=== PATIENT | male | born 1990 | race Caucasian/White ===

== ENCOUNTER 2016-12-16 04:35 | Emergency (ER) | payer SELFPAY ==
[~2016-12-16] VITALS: Ht 175.3 cm; Wt 133.6 kg
[~2016-12-16 04:35] MED LIST: FLUOXETINE; RISPERIDONE; TRAZODONE
--- OUTSIDE RECORDS SUMMARY | 2016-12-16 04:39 | XMS REPORT | Continuity of care Document ---
Author Author GENERATED, SYSTEM Organization Unknown Address Unknown Phone Unavailable Purpose Hospital Course Allergies, Adverse Reactions, Alerts * Latex Allergy has not been assessed. * IV Contrast Allergy has not been assessed. * No Known Drug Allergies. Problems No relevant problems exist. Procedures No relevant procedures performed. Medication Medication reconciliation has not been performed. Results Chemistry from 01/31/2014 12:10 PMANION GAP 8.6 MMOL/L (8.0-16.0 MMOL/L) A/G RATIO 0.9 MG/DL L (1.5-2.2 MG/DL) ALBUMIN 3.6 GM/DL (3.4-5.0 GM/DL) ALK PHOS 141 U/L H (46-116 U/L) ALT (SGPT) 38 U/L (12-78 U/L) AST (SGOT) 16 U/L (15-37 U/L) BUN/CREATININE RATIO 17.5 H (9.1-17.0 ) BILIRUBIN TOTAL 0.42 MG/DL (0.20-1.00 MG/DL) BUN 10 MG/DL (7-18 MG/DL) CALCIUM 8.7 MG/DL (8.5-10.1 MG/DL) CHLORIDE 103 MMOL/L (98-107 MMOL/L) CREATININE 0.57 MG/DL L (0.63-1.13 MG/DL) GFRA EST AFR AMER >=90 ML/MIN GFR EST NON AFR [place] >=90 ML/MIN GLOBULIN 4.0 GM/DL H (2.3-3.5 GM/DL) GLUCOSE 88 MG/DL (65-99 MG/DL) POTASSIUM 3.7 MMOL/L (3.5-5.1 MMOL/L) SODIUM 137 MMOL/L (136-145 MMOL/L) TCO2 25.4 MMOL/L (21.0-32.0 MMOL/L) TOTAL PROTEIN 7.6 GM/DL (6.4-8.2 GM/DL) ALCOHOL <0.003 GM/DL ACETAMINOPHEN <2 MCG/ML L (10-30 MCG/ML) SALICYLATE 2.3 MG/DL L (2.8-20.0 MG/DL) Coagulation from 01/31/2014 12:10 PMPARTIAL THROMBOPLASTIN TIME 21.9 SECONDS L ( 22.0-28.0 SECONDS) INR 0.9 PROTHROMBIN TIME 10.0 SECONDS (9.4-11.5 SECONDS) DX Radiology from 01/31/2014 12:02 PMACUTE ABDOMEN SERIES DATE OF EXAM: Jan 31 2014 12:20PM Proc: [facility] 4256 - ACUTE ABDOMEN SERIES CPT Code(s): 86411-; ; ; INDICATION / CLINICAL HISTORY: Rectal bleeding. COMPARISON: None. FINDINGS: Cardiac silhouette and pulmonary vasculature are within normal limits. There are no focal infiltrates or effusions. There is no free intraperitoneal air. The abdominal bowel gas pattern is unremarkable. There are no suspicious calcifications. IMPRESSION: No acute cardiopulmonary disease or acute abdominal processes. Hematology from 01/31/2014 12:10 PMHEMATOCRIT 43.1 % (36.7-47.1 %) HEMOGLOBIN 14.8 G/DL (12.5-16.3 G/DL) MCH 30.5 PG (27.0-33.0 PG) MCHC 34.3 G/DL (32.0-36.0 G/DL) MCV 88.8 FL (80.0-100.0 FL) MPV 7.9 FL (7.4-10.4 FL) PLATELET 223 X10e3/UL (159-386 X10e3/UL) RBC 4.85 X10e6/UL (4.06-5.63 X10e6/UL) RDW 13.1 % (12.3-17.0 %) RDWSD 40.3 (37.1-47.8 ) WBC 9.4 X10e3/UL (3.6-11.2 X10e3/UL) ABSOLUTE BASOPHILS 0.1 X10e3/UL (0.0-0.2 X10e3/UL) AUTOMATED DIFF PERFORMED ABSOLUTE EOSINOPHILS 0.1 X10e3/UL (0.0-0.5 X10e3/UL) ABSOLUTE LYMPHOCYTES 2.5 X10e3/UL (1.0-3.0 X10e3/UL) ABSOLUTE MONOCYTES 0.8 X10e3/UL (0.3-1.0 X10e3/UL) ABSOLUTE NEUTROPHILS 6.0 X10e3/UL (1.8-7.8 X10e3/UL) BASOPHILS 0.6 % EOSINOPHILS 0.5 % LYMPHOCYTES 26.2 % MONOCYTES 8.5 % SEGS 64.2 %
--- OUTSIDE RECORDS SUMMARY | 2016-12-16 04:39 | XMS REPORT | Continuity of Care Document ---
Author Author [facility] Organization [facility] Address Unknown Phone Unavailable Support Name Relationship Address Phone JANUARY, JOJO M DO Caregiver [address] [place] [address] Unavailable AMBER CARBAJAL Next Of Kin Unknown [phone] Insurance Providers Guarantor Neeraj Ferguson Address [address] [place] [address] Email DENIED 16 Payer Self Pay Subscriber's Name Neeraj Ferguson Relationship 18 Self Chief Complaint and Reason for Visit Chief Complaint Cough,Fever,Flu,URI Reason for Visit URI (upper respiratory infection) Problems Past Problems Medical Problem Onset Date URI (upper respiratory infection) Unknown Medications Current Home Medications Medication Dose Units Route Directions Days Qty Instructions Start Date Fluoxetine 11/04/16 Risperidone 11/04/16 Trazodone 11/04/16 Social History Social History Problem Response Recorded Date/Time Onset Date Status Chewing Tobacco Status No 11/04/2016 3:43am Not Applicable Not Applicable Hx Substance Use N CLEAN FOR 100DAYS 11/04/2016 3:43am Not Applicable Not Applicable Hx Alcohol Use No 11/04/2016 3:43am Not Applicable Not Applicable Query Response Start Date Stop Date Smoking Status Current every day smoker Hospital Discharge Instructions No hospital discharge instructions. Plan of Care Discharge Date 11/04/16 4:08am Disposition 01 DISCHARGED HOME, SELF-CARE Condition at Discharge Stable Instructions/Education Provided Upper Respiratory Infection (ED) Prescriptions See Medication Section Referrals YOUR PHYSICIAN Order Date: 1 Week Note: Additional Instructions/Education You have a viral upper respiratory infection (a cold). Use nyquil and dayquil to help control your symptoms. You may use throat lozenges or tea with honey and lemon for sore throat, if one develops. Drink plenty of fluids and get plenty of rest. Follow up with your doctor, especially if your symptoms last more than 14 days total. Care Plan and Goals Physician Care Plan Problem: URI Goal: Follow up with primary care provider Instructions: Take medications and follow care plan as discussed/written Functional Status No functional status results. Allergies, Adverse Reactions, Alerts No known allergies. Immunizations No immunization records. Vital Signs Acute Vital Signs Vital Response Date/Time Temperature (Fahrenheit) 97.6 deg F (96.8 - 99.1) 11/04/2016 4:08am Temperature (Calculated Celsius) 36.10115 degrees C (36.0 - 37.3) 11/04/2016 4:08am Pulse Rate (adult) 70 bpm (60 - 100) 11/04/2016 4:08am Respiratory Rate 18 breaths/min (10 - 20) 11/04/2016 4:08am O2 Sat by Pulse Oximetry 97 % (90 - 100) 11/04/2016 4:08am Blood Pressure 145/86 mm Hg 11/04/2016 4:08am Height (Feet) 5 feet 11/04/2016 3:37am Height (Inches) 9.00 inches 11/04/2016 3:37am Weight (Kilograms) 135.600 kg 11/04/2016 3:37am Body Mass Index (BMI) 44.0 11/04/2016 3:37am Results No known relevant diagnostic tests, laboratory data and/or discharge summary. Procedures No known history of procedures. Encounters Encounter Location Arrival/Admit Date Discharge/Depart Date Attending Provider Departed Emergency Room [facility] 11/04/16 3:30am 11/04/16 4: 08am JOJO VIDAL DO Recent Diagnosis
--- OUTSIDE RECORDS SUMMARY | 2016-12-16 04:39 | XMS REPORT ---
Author Author GENERATED, SYSTEM Organization Unknown Address Unknown Phone Unavailable Care Team Providers Care Referral Agent Name Role Phone MD HANNA, [facility] [phone] Reason For Visit Chief Complaint COUGH X 1 WEEK Social History Functional Status Vital Signs Results Problems Encounter Diagnosis No relevant problems exist. Encounters Encounter Diagnosis No relevant problems exist. Plan of Care Procedures * Completed Procedure Code: 00.00 Procedure Name: not valued, on 12/26/2014 12: 00 AM * Completed , on 03/12/2013 12:00 AM * Completed , on 11/18/2012 12:00 AM Immunizations No immunizations administered or ordered. Hospital Course Hospital Discharge Instructions Allergies, Adverse Reactions, Alerts * Latex Allergy has not been assessed. * IV Contrast Allergy has not been assessed. * No Known Drug Allergies. * No Known Food Allergies. * No Known Allergies. Medication Medication reconciliation has not been performed.
--- OUTSIDE RECORDS SUMMARY | 2016-12-16 04:39 | XMS REPORT ---
Author Author GENERATED, SYSTEM Organization Unknown Address Unknown Phone Unavailable Care Team Providers Care Drupal Developer Name Role Phone MD HANNA, [facility] [phone] Reason For Visit Chief Complaint STAPH INFECTION Social History Functional Status Vital Signs Results Problems Encounter Diagnosis No relevant problems exist. Encounters Encounter Diagnosis No relevant problems exist. Plan of Care Procedures * Completed , on 03/12/2013 12:00 AM [...]
--- OUTSIDE RECORDS SUMMARY | 2016-12-16 04:39 | XMS REPORT ---
Author Author GENERATED, SYSTEM Organization Unknown Address Unknown Phone Unavailable Care Team Providers Care [employer] 7 [employer] 8 Teacher Name Role Phone MD HANNA, [facility] [phone] Reason For Visit Chief Complaint STAPH INFECTION IN HAND COUGH Social History Functional Status Vital Signs Results [...] been assessed. * No Known Drug Allergies. Medication Medication reconciliation has not been performed.
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
--- OUTSIDE RECORDS SUMMARY | 2016-12-16 04:40 | XMS REPORT ---
Author Author GENERATED, SYSTEM Organization Unknown Address Unknown Phone Unavailable Care Team Providers Care Plaster Machine Tender Name Role Phone UNASSIGNED DOCTOR , DOCTOR PP [phone] Reason For Visit Reason for Visit from 02/09/2016 11:35 AM:* Pt Stated Reason for Adm : Pt from [facility], unable to safety plan, "severe" SI, Reason for Visit from 02/07/2016 3:41 PM:* Pt Stated Reason for Adm : Pt from [facility], unable to safety plan, "severe" SI, Chief Complaint UNSPECIFIED DEPRESSION Social History Social History from 02/10/2016 10:59 AM:* Tobacco Use? : Current Everyday Smoker Social History from 02/09/2016 11:35 AM:* Tobacco Use? : Current Everyday Smoker Social History from 02/07/2016 3:41 PM:* Tobacco Use? : Current Everyday Smoker Functional Status Functional Status from 02/10/2016 11:17 AM:* LOC : Alert * Oriented To : Person,Place,Time,Event * Weight Bearing Status : Full * Assist Level : Independent * # Assists : Independent Functional Status from 02/09/2016 7:20 PM:* LOC : Alert * Oriented To : Person,Place,Time,Event * Weight Bearing Status : Full * Assist Level : Independent * # Assists : Independent Functional Status from 02/09/2016 9:08 AM:* LOC : Alert * Oriented To : Person,Place,Time,Event * Weight Bearing Status : Full * Assist Level : Independent * # Assists : Independent Functional Status from 02/08/2016 8:38 PM:* LOC : Alert * Oriented To : Person,Place,Time,Event * Weight Bearing Status : Full * Assist Level : Independent * # Assists : Independent Functional Status from 02/08/2016 10:41 AM:* LOC : Alert * Oriented To : Person,Place,Time,Event * Weight Bearing Status : Full * Assist Level : Independent * # Assists : Independent Functional Status from 02/07/2016 7:30 PM:* LOC : Alert * Oriented To : Person,Place,Time,Event * Weight Bearing Status : Full * Assist Level : Independent * # Assists : Independent Functional Status from 02/07/2016 3:41 PM:* LOC : Alert * Oriented To : Person,Place,Time,Event * Weight Bearing Status : Full * Assist Level : Independent * # Assists : Independent Vital Signs Hospital Vital Signs from 02/10/2016 6:17 AM:* Height : 5/9 ft,in * Temperature : 97.5 F * Pulse : 66 * Respirations : 20 * BP : 109/68 Hospital Vital Signs from 02/09/2016 6:32 AM:* Weight : 129.6/ kg * Height : 5/9 ft,in * Temperature : 97.3 F * Pulse : 70 * Respirations : 18 * BP : 139/82 Hospital Vital Signs from 02/08/2016 9:05 PM:* Height : 5/9 ft,in * Temperature : 97.4 F * Pulse : 97 * Respirations : 20 * BP : 153/108 Hospital Vital Signs from 02/08/2016 10:29 AM:* Height : 5/9 ft,in Hospital Vital Signs from 02/08/2016 5:46 AM:* Height : 5/9 ft,in * Temperature : 96.9 F * Pulse : 85 * Respirations : 20 * BP : 140/96 Hospital Vital Signs from 02/07/2016 3:41 PM:* Weight : 128.7/ kg * Height : 5/9 ft,in Hospital Vital Signs from 02/07/2016 2:50 PM:* Weight : 128.7/ kg * Height : 5/9 ft,in * Temperature : 97.2 F * Pulse : 97 * Respirations : 16 * BP : 159/103 Results Chemistry from 02/08/2016 4:30 AMGLUCOSE (FASTING) 107 MG/DL H (65-99 MG/DL) Chemistry from 02/07/2016 4:20 PMSODIUM 142 MMOL/L (136-145 MMOL/L) POTASSIUM 4.5 MMOL/L (3.5-5.1 MMOL/L) CHLORIDE 103 MMOL/L (98-107 MMOL/L) TCO2 31.6 MMOL/L (21.0-32.0 MMOL/L) *ANION GAP 7.4 MMOL/L L (8.0-16.0 MMOL/L) BUN 9 MG/DL (7-18 MG/DL) CREATININE 0.68 MG/DL L (0.70-1.30 MG/DL) *BUN/CREATININE RATIO 13.2 (9.1-17.0 ) GLUCOSE 94 MG/DL (65-99 MG/DL) *GFR EST NON AFR [place] >90 ML/MIN *GFRA EST AFR AMER >90 ML/MIN CALCIUM 9.0 MG/DL (8.5-10.1 MG/DL) BILIRUBIN TOTAL 0.30 MG/DL (0.20-1.00 MG/DL) TOTAL PROTEIN 7.9 GM/DL (6.4-8.2 GM/DL) ALBUMIN 3.6 GM/DL (3.4-5.0 GM/DL) *GLOBULIN 4.3 GM/DL H (2.3-3.5 GM/DL) *A/G RATIO 0.8 MG/DL L (1.5-2.2 MG/DL) ALK PHOS 153 U/L H (46-116 U/L) ALT (SGPT) 41 U/L (14-59 U/L) AST (SGOT) 19 U/L (15-37 U/L) ALCOHOL <0.003 GM/DL Chemistry from 02/07/2016 3:39 PM*COCAINE NEGATIVE (NEG <150 ) *PCP NEGATIVE (NEG <25 ) *OXYCODONE NEGATIVE (NEG <100 ) *PROPOXYPHENE (NORPROPOXYPHENE) NEGATIVE (NEG <300 ) *CANNABINOIDS NEGATIVE (NEG <50 ) *BENZODIAZEINE NEGATIVE (NEG <150 ) *AMPHETAMINE POSITIVE A (NEG <500 ) *BARBITURATES NEGATIVE (NEG <200 ) *METHAMPHETAMINES POSITIVE A (NEG <500 ) *METHADONE (UR) NEGATIVE (NEG <200 ) *OPIATES NEGATIVE (NEG <100 ) *TRICYCLICS NEGATIVE (NEG <300 ) Hematology from 02/07/2016 4:20 PMWBC 8.1 X10e3/UL (3.6-11.2 X10e3/UL) RBC 5.26 X10e6/UL (4.06-5.63 X10e6/UL) HEMOGLOBIN 15.6 G/DL (12.5-16.3 G/DL) HEMATOCRIT 46.7 % (36.7-47.1 %) *MCV 88.8 FL (80.0-100.0 FL) *MCH 29.7 PG (27.0-33.0 PG) *MCHC 33.5 G/DL (32.0-36.0 G/DL) *RDW 13.8 % (12.3-17.0 %) *RDWSD 42.9 (37.1-47.8 ) PLATELET 242 X10e3/UL (159-386 X10e3/UL) *MPV 7.9 FL (7.4-10.4 FL) Urinalysis from 02/07/2016 3:39 PM*URINE COLOR YELLOW (STRAW/YELL/DK YELL ) *URINE APPEARANCE CLEAR (CLEAR ) URINE PH 6.0 (5.0-8.0 ) URINE SPECIFIC GRAVITY 1.015 (<=1.005->=1.030 ) *URINE GLUCOSE NEGATIVE MG/DL (NEGATIVE MG/DL) *URINE BILIRUBIN NEGATIVE (NEGATIVE ) *URINE KETONES NEGATIVE MG/DL (NEGATIVE MG/DL) *URINE BLOOD NEGATIVE (NEGATIVE ) *URINE PROTEIN NEGATIVE MG/DL (NEGATIVE MG/DL) *URINE UROBILINOGEN 0.2 EU/DL (0.2-1.0 EU/DL) *URINE NITRITES NEGATIVE (NEGATIVE ) *URINE LEUKOCYTES NEGATIVE (NEGATIVE ) Serology from 02/08/2016 11:40 AMHIV 1/2 RAPID SCREEN NON-REACTIVE (NON- REACTIVE ) Reference Lab from 02/08/2016 11:40 AMHEP A AB IGM Negative (Negative ) HEP B SURFACE AG Negative (Negative ) HEP B CORE AB IGM Negative (Negative ) *HCV AB <0.1 s/co ratio (0.0-0.9 s/co ratio) Problems Encounter Diagnosis No relevant problems exist. Encounters Encounter Diagnosis No relevant problems exist. Plan of Care Follow-up Appointments from 02/10/2016 10:59 AM:* #1 Office appointment: : [facility] Intake * #1 Date/Time : 02/10/2016 1:00 PM * Address # 1 : [facility]: [address], [address], [place] - Procedures * Completed Procedure Code: 00.00 Procedure Name: not valued, on 12/26/2014 12: 00 AM * Completed , on 03/12/2013 12:00 AM * Completed , on 11/18/2012 12:00 AM Immunizations No immunizations administered or ordered. Hospital Course Hospital Discharge Instructions How to care for yourself at home from 02/10/2016 10:59 AM:* Discharge Activity : Activity as tolerated,May Shower * Discharge Diet : As before hospitalization,Diet as tolerated * Call your doctor if: : Fever over 101 F or severe chills,Chest pain or other unexplained symptoms,Tingling or numbness develops,A sudden increase or decrease in weight,You have persistent or worsening symptoms,If you have Heart Failure and you gain 3 pounds within 1 week or your symptoms worsen. (Weigh at home tomorrow morning) Allergies, Adverse Reactions, Alerts * No Latex Allergy. * No IV Contrast Allergy. * No Known Drug Allergies. * No Known Food Allergies. * No Known Allergies. Medication It is the responsibility of the patient or patient home office representative to confirm the list of medications with either the patient's personal care provider or the patient's follow-up care provider to ensure the patient has an appropriate list of medications to take at home. Discharge medications New medications* busPIRone 15 mg Tablet, Ordered By: JUANA PETERSON, PAC Directions: 0.5 tablet oral twice a day for anxiety * FLUoxetine (PROzac) 20 mg Capsule, Ordered By: JUANA PETERSON, PAC Directions: 1 capsule oral daily for depression * traZODone 50 mg Tablet, Ordered By: JUANA PETERSON, PAC Directions: 1 tablet oral daily at bedtime for insomnia * nicotine (polacrilex) (Nicorelief) 2 mg Gum, Ordered By: JUANA PETERSON, PAC Directions: 1 gum oral daily for SMOKING CESSATION Additional Instructions: DO NOT GIVE IF PATIENT UNDER AGE 18 OR . Stopped medications* None
--- OUTSIDE RECORDS SUMMARY | 2016-12-16 04:40 | XMS REPORT ---
Author Author GENERATED, SYSTEM Organization Unknown Address Unknown Phone Unavailable Care Team Providers Care Solar Project Coordination Specialist Name Role Phone MD HANNA, [facility] [phone] Reason For Visit Chief Complaint RETURN FOR TEFLARO CHECK Social History Functional Status Vital Signs Results [...]
--- OUTSIDE RECORDS SUMMARY | 2016-12-16 04:40 | XMS REPORT ---
Author Author GENERATED, SYSTEM Organization Unknown Address Unknown Phone Unavailable Care Team Providers Care Stair Builder Name Role Phone MD HANNA, [facility] [phone] Reason For Visit Chief Complaint CRISIS Social History Functional Status Vital Signs Results Chemistry from 01/22/2015 4:07 AMSODIUM 139 MMOL/L (136-145 MMOL/L) POTASSIUM 3.3 MMOL/L L (3.5-5.1 MMOL/L) CHLORIDE 103 MMOL/L (98-107 MMOL/L) TCO2 24.8 MMOL/L (21.0-32.0 MMOL/L) ANION GAP 11.2 MMOL/L (8.0-16.0 MMOL/L) BUN 19 MG/DL H (7-18 MG/DL) CREATININE 0.73 MG/DL (0.63-1.13 MG/DL) BUN/CREATININE RATIO 26.0 H (9.1-17.0 ) GLUCOSE 107 MG/DL H (65-99 MG/DL) GFR EST NON AFR [place] >90 ML/MIN GFRA EST AFR AMER >90 ML/MIN CALCIUM 8.9 MG/DL (8.5-10.1 MG/DL) BILIRUBIN TOTAL 0.36 MG/DL (0.20-1.00 MG/DL) TOTAL PROTEIN 7.6 GM/DL (6.4-8.2 GM/DL) ALBUMIN 3.6 GM/DL (3.4-5.0 GM/DL) GLOBULIN 4.0 GM/DL H (2.3-3.5 GM/DL) A/G RATIO 0.9 MG/DL L (1.5-2.2 MG/DL) ALK PHOS 122 U/L H (46-116 U/L) ALT (SGPT) 48 U/L (14-59 U/L) AST (SGOT) 37 U/L (15-37 U/L) ALCOHOL <0.003 GM/DL ACETAMINOPHEN <2 MCG/ML L (10-30 MCG/ML) SALICYLATE 2.5 MG/DL L (2.8-20.0 MG/DL) Chemistry from 01/22/2015 3:50 AMCOCAINE NEGATIVE (NEG <150 ) PCP NEGATIVE (NEG <25 ) OXYCODONE NEGATIVE (NEG <100 ) *PROPOXYPHENE (NORPROPOXYPHENE) (LAB) NEGATIVE (NEG <300 ) CANNABINOIDS POSITIVE A (NEG <50 ) BENZODIAZEINE NEGATIVE (NEG <150 ) AMPHETAMINE POSITIVE A (NEG <500 ) BARBITURATES NEGATIVE (NEG <200 ) METHAMPHETAMINES POSITIVE A (NEG <500 ) METHADONE (UR) NEGATIVE (NEG <200 ) OPIATES NEGATIVE (NEG <100 ) TRICYCLICS NEGATIVE (NEG <300 ) Hematology from 01/22/2015 4:07 AMWBC 6.8 X10e3/UL (3.6-11.2 X10e3/UL) RBC 4.84 X10e6/UL (4.06-5.63 X10e6/UL) HEMOGLOBIN 14.8 G/DL (12.5-16.3 G/DL) HEMATOCRIT 43.5 % (36.7-47.1 %) MCV 89.9 FL (80.0-100.0 FL) MCH 30.5 PG (27.0-33.0 PG) MCHC 33.9 G/DL (32.0-36.0 G/DL) RDW 13.4 % (12.3-17.0 %) RDWSD 42.0 (37.1-47.8 ) PLATELET 205 X10e3/UL (159-386 X10e3/UL) MPV 8.0 FL (7.4-10.4 FL) AUTOMATED DIFF PERFORMED SEGS 44.0 % LYMPHOCYTES 37.2 % MONOCYTES 16.0 % EOSINOPHILS 2.3 % BASOPHILS 0.5 % ABSOLUTE NEUTROPHILS 3.00 X10e3/UL (1.80-7.80 X10e3/UL) ABSOLUTE LYMPHOCYTES 2.50 X10e3/UL (1.00-3.00 X10e3/UL) ABSOLUTE MONOCYTES 1.10 X10e3/UL H (0.30-1.00 X10e3/UL) ABSOLUTE EOSINOPHILS 0.20 X10e3/UL (0.00-0.50 X10e3/UL) ABSOLUTE BASOPHILS 0.00 X10e3/UL (0.00-0.20 X10e3/UL) Problems Encounter Diagnosis No relevant problems exist. [...]
--- OUTSIDE RECORDS SUMMARY | 2016-12-16 04:40 | XMS REPORT | Continuity of care Document ---
Author Author GENERATED, SYSTEM Organization Unknown Address Unknown Phone Unavailable Purpose Hospital Course Allergies, Adverse Reactions, Alerts * No Latex Allergy. * No IV Contrast Allergy. * No Known Drug Allergies. Problems No relevant problems exist. Procedures No relevant procedures performed. Medication It is the responsibility of the patient or patient career services representative to confirm the list of medications with either the patient's personal care provider or the patient's follow-up care provider to ensure the patient has an appropriate list of medications to take at home. Take These Medications* FLUoxetine 40 mg Capsule, Ordered By: ANNALISE LYNN Directions: 1 capsule oral daily * traZODone 50 mg Tablet, Ordered By: ANNALISE LYNN Directions: 1 tablet oral daily at bedtime Stop Taking These Medications* None Results Chemistry from 12/04/2013 2:34 PMTOTAL PROTEIN 7.2 GM/DL (6.4-8.2 GM/DL) TCO2 32.2 MMOL/L H (21.0-32.0 MMOL/L) SODIUM 137 MMOL/L (136-145 MMOL/L) POTASSIUM 4.1 MMOL/L (3.5-5.1 MMOL/L) GLUCOSE 90 MG/DL (65-99 MG/DL) GLOBULIN 3.6 GM/DL H (2.3-3.5 GM/DL) GFR EST NON AFR SOUTH KOREAN >=90 ML/MIN GFRA EST AFR AMER >=90 ML/MIN CREATININE 0.63 MG/DL (0.63-1.13 MG/DL) CHLORIDE 103 MMOL/L (98-107 MMOL/L) CALCIUM 8.9 MG/DL (8.5-10.1 MG/DL) BUN 8 MG/DL (7-18 MG/DL) BILIRUBIN TOTAL 0.26 MG/DL (0.20-1.00 MG/DL) BUN/CREATININE RATIO 12.7 (9.1-17.0 ) AST (SGOT) 17 U/L (15-37 U/L) ALT (SGPT) 32 U/L (12-78 U/L) ALK PHOS 137 U/L H (46-116 U/L) ALBUMIN 3.6 GM/DL (3.4-5.0 GM/DL) A/G RATIO 1.0 MG/DL L (1.5-2.2 MG/DL) ANION GAP 1.8 MMOL/L L (8.0-16.0 MMOL/L) Chemistry from 12/04/2013 5:30 PM*PROPOXYPHENE (NORPROPOXYPHENE) (LAB) NEGATIVE (NEG <300 ) OXYCODONE NEGATIVE (NEG <100 ) CANNABINOIDS NEGATIVE (NEG <50 ) TRICYCLICS NEGATIVE (NEG <300 ) PCP NEGATIVE (NEG <25 ) METHADONE (UR) NEGATIVE (NEG <200 ) OPIATES NEGATIVE (NEG <100 ) METHAMPHETAMINES NEGATIVE (NEG <500 ) COCAINE NEGATIVE (NEG <150 ) BENZODIAZEINE NEGATIVE (NEG <150 ) BARBITURATES NEGATIVE (NEG <200 ) AMPHETAMINE NEGATIVE (NEG <500 ) Hematology from 12/04/2013 2:34 PMWBC 8.5 X10e3/UL (3.6-11.2 X10e3/UL) RDWSD 41.6 (37.1-47.8 ) RDW 13.4 % (12.3-17.0 %) RBC 4.83 X10e6/UL (4.06-5.63 X10e6/UL) PLATELET 223 X10e3/UL (159-386 X10e3/UL) MPV 8.3 FL (7.4-10.4 FL) MCV 90.1 FL (80.0-100.0 FL) MCHC 33.5 G/DL (32.0-36.0 G/DL) MCH 30.2 PG (27.0-33.0 PG) HEMOGLOBIN 14.6 G/DL (12.5-16.3 G/DL) HEMATOCRIT 43.5 % (36.7-47.1 %) Urinalysis from 12/04/2013 5:30 PMURINE BILIRUBIN NEGATIVE (NEGATIVE ) URINE BLOOD NEGATIVE (NEGATIVE ) URINE GLUCOSE NEGATIVE MG/DL (NEGATIVE MG/DL) URINE KETONES NEGATIVE MG/DL (NEGATIVE MG/DL) *URINE LEUKOCYTES NEGATIVE (NEGATIVE ) URINE NITRITES NEGATIVE (NEGATIVE ) URINE PH 7.5 (5.0-8.0 ) URINE PROTEIN NEGATIVE MG/DL (NEGATIVE MG/DL) URINE UROBILINOGEN 0.2 EU/DL (0.2-1.0 EU/DL) URINE SPECIFIC GRAVITY 1.015 (<=1.005->=1.030 ) URINE COLOR YELLOW (STRAW/YELL/DK YELL ) URINE APPEARANCE SL CLOUDY A (CLEAR )
--- OUTSIDE RECORDS SUMMARY | 2016-12-16 04:40 | XMS REPORT ---
Author Author GENERATED, SYSTEM Organization Unknown Address Unknown Phone Unavailable Care Team Providers Care Strip Stamp Straightener Name Role Phone MD HANNA, [facility] [phone] Reason For Visit Chief Complaint RECHECK OF STAF INFECTION FOR WORK Social History Functional Status Vital Signs Results [...]
--- OUTSIDE RECORDS SUMMARY | 2016-12-16 04:40 | XMS REPORT ---
Author Author GENERATED, SYSTEM Organization Unknown Address Unknown Phone Unavailable Care Team Providers Care Field Evidence Technician Name Role Phone UNASSIGNED DOCTOR , DOCTOR PP [phone] Reason For Visit Chief Complaint RT EAR PAIN Social History Functional Status Vital Signs Results [...]
--- OUTSIDE RECORDS SUMMARY | 2016-12-16 04:40 | XMS REPORT ---
Author Author GENERATED, SYSTEM Organization Unknown Address Unknown Phone Unavailable Care Team Providers Care Job Boss Name Role Phone MD HANNA, [facility] [phone] Reason For Visit Chief Complaint EAR ACHE WANTS ANTIBIOTICS Social History Functional Status Vital Signs Results [...]
[2016-12-16 04:49] VITALS: Ht 175.3 cm; Wt 133.6 kg
[2016-12-16] MEDS ORDERED: NO ROUTINE MEDS (04:59)
--- NOTE | 2016-12-16 05:03 | ERPDOC ---
Departure Disposition Decision Date: Dec 16, 2016 Disposition Decision Time: 05:41 Disposition: 01 DISCHARGED HOME, SELF-CARE Impression Impression Impression: Primary Impression: Right knee sprain Severity: Moderate Condition: Stable Seen By: Physician only Referrals: JING GONZALEZ MD Patient Instructions: Knee Sprain (ED) Problems/Meds/Labs Reviewed?: Yes Medications reviewed and manag: Yes Additional Instructions: Please call and make an appointment to see Dr. Gonzalez on Sunday for follow-up on an ER visit. Use crutches for toe-touch, minimal weightbearing on the leg until cleared by orthopedics. [place] 5 mg, 1 tab every 6 hours as needed for pain. Ice and elevate the knee. Follow up care ordered?: Yes Mental Status: Alert, Oriented HPI - Lower Extremity General Chief Complaint: Lower Extremity Pain Stated Complaint: INJ R KNEE Time Seen by Provider: 05:01 HPI - Lower Extremity Initial Comments 26-year-old gentleman with right knee trauma. Patient was trying to pull him out of the way tobacco van up to the house is moving into when he slipped. As he fell down he heard multiple pops in his knee and thought he may have broken it. He says it took him probably 15 minutes to get up off the ground because the pain was pretty intense. He's not had any other significant injuries to this knee. He is in his probationary period at work and really wants to be work on Sunday. Allergies: Coded Allergies: No Known Allergies (Unverified , 11/04/16) Past History Past Medical History Psychological: depression Surgical History Denies Surgeries Social History Smoking Status: Current every day smoker Substance Use Type: does not use Record Review Pertinent history updated: Yes Review of Systems Musculoskeletal General: see HPI All other Systems All Other Systems: Reviewed and Negative Physical Exam General General Nourishment: adult, obese, acute distress Distress Description Knee pain, unable to bear weight without pain Vitals and Pain First Documented Vital Signs Date Time Temp Pulse Resp B/P Pulse Ox O2 Delivery O2 Flow Rate FiO2 12/16/16 04:49 98.4 108 18 143/85 99 Room Air Weight: Kilograms: 133.600 Height (feet): 5 Height (inches): 9.00 Triage Pain Scale: Normal Exams: Head: Normocephalic w/o trauma Chest/Resp: Clear all guzmán, with good airflow, and symmetry bilaterally CV: Regular rate and rhythm, without murmur or gallop, Pulses 2+ all extremities, capillary refill, <2 seconds all ext., no pedal edema noted Neurologic: Patient is alert, and oriented, cranial nerves, motor/sensory/ cerebellar, exams w/o gross deficits, to observation Psychiatric: Patient exhibits, appropriate attention, emotion and affect Differential Diagnoses Considering: Cartilage Tear, Dislocation, Fracture, Ligament Tear ACL, Ligament Tear PCL, Meniscal Injury, Knee, Sprain, Strain Progress Results/Orders Orders Procedure Category Date Status Time Knee Right 3 Views RAD 12/16/16 Taken 05:03 Knee Immobilizer SARAH 12/16/16 In Process 05:31 Hydrocodone/Apap PHA 12/16/16 Logged 5/325 Prepack ([place] 5 05:45 Hydrocodone/Acetaminophen PHA 12/16/16 Logged ([place] 5/325) 05:45 Crutches EDM 12/16/16 Transmitted 05:36 Medications Current ED Medications Acetaminophen/ Hydrocodone Bitart (NORCO 5 (PrePack)) 1 pack O ONCE SENT HOME ; Start 12/16/16 at 05:45; Stop 12/16/16 at 05:46; Status UNV Acetaminophen/ Hydrocodone Bitart ([place] 5/325) 1 tab O ONCE PO ; Start at 05:45; Stop 12/16/16 at 05:46; Status UNV Progress Progress Patient is too tender to get an appropriate exam on the knee for mobility. On x- ray the joint appears to be deranged somewhat. Patient is placed in knee immobilizer, given crutches for partial weightbearing as tolerated. I would like him to follow up with orthopedics on Sunday to make sure I did not miss something on the x-ray, and to get a better exam. Patient given [place] 5 mg tablet 1 in the ED, a [place] take home pack to use when necessary over the weekend. Recommend ice and elevate and follow-up with orthopedics on Sunday. MAGO INFANTE MD Dec 16, 2016 05:03
--- NOTE | 2016-12-16 05:05 | NUR ---
XRAY PT TAKEN TO XRAY PER W/C
--- NOTE | 2016-12-16 05:05 | NUR ---
Candy gamez in ED - 12/16/16 at 0520 by MARYJO XRAY PT TAKEN TO XRAY PER CART
--- NOTE | 2016-12-16 05:20 | NUR ---
ROOM PT RETURNED TO ROOM 1 PER W/C FROM XRAY
--- OUTSIDE RECORDS SUMMARY | 2016-12-16 05:21 | XMS REPORT | Continuity of care Document ---
Author Author GENERATED, SYSTEM Organization Unknown Address Unknown Phone Unavailable Purpose Hospital Course Allergies, Adverse Reactions, Alerts * No Latex Allergy. * No IV Contrast Allergy. * No Known Drug Allergies. Problems No relevant problems exist. Procedures No relevant procedures performed. Medication It is the responsibility of the patient or patient car sales representative to confirm the list of medications [...] H (2.3-3.5 GM/DL) GFR EST NON AFR CHILEAN >=90 ML/MIN GFRA EST AFR AMER >=90 [...]
--- OUTSIDE RECORDS SUMMARY | 2016-12-16 05:21 | XMS REPORT ---
Author Author GENERATED, SYSTEM Organization Unknown Address Unknown Phone Unavailable Care Team Providers Care Civil Engineer'S Aide Name Role Phone MD HANNA, [facility] [phone] Reason For Visit Chief Complaint RETURN FOR [...]
--- OUTSIDE RECORDS SUMMARY | 2016-12-16 05:21 | XMS REPORT ---
Author Author GENERATED, SYSTEM Organization Unknown Address Unknown Phone Unavailable Care Team Providers Care Auxiliary Equipment Operator Name Role Phone UNASSIGNED DOCTOR , DOCTOR PP [phone] Reason For Visit Reason for Visit from [...] MG/DL (65-99 MG/DL) *GFR EST NON AFR GAMBIAN >90 ML/MIN *GFRA EST AFR AMER >90 [...] 02/10/2016 10:59 AM:* #1 Office appointment: : [facility] Intake * #1 Date/Time : 02/10/2016 1:00 PM * Address # 1 : [facility]: [address], [address], [place] - Procedures * Completed Procedure Code: 00.00 [...] the responsibility of the patient or patient procurement representative to confirm the list of medications [...]
--- OUTSIDE RECORDS SUMMARY | 2016-12-16 05:21 | XMS REPORT | Continuity of care Document ---
[...] AMER >=90 ML/MIN GFR EST NON AFR PRYDEINIG >=90 ML/MIN GLOBULIN 4.0 GM/DL H (2.3-3.5 [...] 4256 - ACUTE ABDOMEN SERIES CPT Code(s): 86101-; ; ; INDICATION / CLINICAL HISTORY: Rectal [...]
--- OUTSIDE RECORDS SUMMARY | 2016-12-16 05:21 | XMS REPORT ---
Author Author GENERATED, SYSTEM Organization Unknown Address Unknown Phone Unavailable Care Team Providers Care Junior Accountant Name Role Phone UNASSIGNED DOCTOR , DOCTOR PP [phone] Reason For Visit Chief Complaint RT EAR [...]
--- OUTSIDE RECORDS SUMMARY | 2016-12-16 05:21 | XMS REPORT ---
Author Author GENERATED, SYSTEM Organization Unknown Address Unknown Phone Unavailable Care Team Providers Care Figure Refinisher And Repairer Name Role Phone MD HANNA, [facility] [phone] Reason For Visit Chief Complaint EAR ACHE [...]
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
--- OUTSIDE RECORDS SUMMARY | 2016-12-16 05:21 | XMS REPORT ---
Author Author GENERATED, SYSTEM Organization Unknown Address Unknown Phone Unavailable Care Team Providers Care Group Counselor Name Role Phone MD HANNA, [facility] [phone] Reason For Visit Chief Complaint STAPH INFECTION [...]
--- OUTSIDE RECORDS SUMMARY | 2016-12-16 05:21 | XMS REPORT ---
Author Author GENERATED, SYSTEM Organization Unknown Address Unknown Phone Unavailable Care Team Providers Care Hazardous Substances Engineer Name Role Phone MD HANNA, [facility] [phone] Reason For Visit Chief Complaint STAPH INFECTION [...]
--- OUTSIDE RECORDS SUMMARY | 2016-12-16 05:21 | XMS REPORT ---
Author Author GENERATED, SYSTEM Organization Unknown Address Unknown Phone Unavailable Care Team Providers Care Linux Kernel Developer Name Role Phone MD HANNA, [facility] [phone] Reason For Visit Chief Complaint CRISIS Social [...] H (65-99 MG/DL) GFR EST NON AFR MEXICAN >90 ML/MIN GFRA EST AFR AMER >90 [...]
--- OUTSIDE RECORDS SUMMARY | 2016-12-16 05:21 | XMS REPORT ---
Author Author GENERATED, SYSTEM Organization Unknown Address Unknown Phone Unavailable Care Team Providers Care Paperhanger Supervisor Name Role Phone MD HANNA, [facility] [phone] Reason For Visit Chief Complaint RECHECK OF [...]
--- OUTSIDE RECORDS SUMMARY | 2016-12-16 05:21 | XMS REPORT ---
Author Author GENERATED, SYSTEM Organization Unknown Address Unknown Phone Unavailable Care Team Providers Care Roving Frame Tender Name Role Phone MD HANNA, [facility] [phone] Reason For Visit Chief Complaint COUGH X [...]
--- NOTE | 2016-12-16 05:44 | NUR ---
SPLINT KNEE IMMOBILIZER TO THE RIGHT KNEE WITH INSTRUCTIONS ON USE AND APPLICATION/ADJUSTMENT PT VERBALIZED UNDERSTANDING OF ALL
[2016-12-16] MEDS ORDERED: HYDROCODONE/APAP 5/325 (PrePack) SENT HOME ONE (05:45)
[2016-12-16] MEDS ORDERED: HYDROCODONE/APAP 5 mg/325 mg TABLET PO ONE (05:45)
--- NOTE | 2016-12-16 05:48 | NUR ---
CRUTCHES CRUTCHES PROVIDED AND ADJUSTED TO PT HEIGHT CRUTCH TEACHING DONE
--- NOTE | 2016-12-16 05:57 | NUR ---
INSTRUCTIONS DISMISSAL AND MEDICATION INSTRUCTIONS GIVEN TO PT DISP PREPACK HUNTER WITH INSTRUCTIONS PT DENIES ANY QUESTIONS
[2016-12-16 06:00] VITALS: BP 148/92; PULSE 97; RESP 18; TEMP 98.4; O2SAT 98
--- NOTE | 2016-12-16 06:00 | NUR ---
DISMISS PT DISMISSED PER W/C WITH CRUTCHES ESCORTED TO MICHAEL BY JÚNIOR
--- NOTE | 2016-12-17 10:03 | DI ---
Indication: ITS.REASON: trauma to knee PROCEDURE: KNEE RIGHT 3 VIEWS: Encounter: Initial Comparison: None Findings: There is an acute fracture of the medial anterior aspect of the patella seen on the sunrise view. The displaced fracture fragment measures 9 mm in maximal size. This may be within the medial joint space. There is also evidence of a chronic injury to the medial femoral condyle. Mild medial and lateral compartment joint space narrowing, advanced for age. Impression: Acute medial patellar avulsion fracture. .
== END 2016-12-16 06:00 | disposition home or self-care (01) ==
LOC: ED 04:35
DX: S83.91XA Sprain of unspecified site of right knee, initial encounter (principal); W01.0XXA Fall on same level from slipping, tripping and stumbling without subsequent striking against object, initial encounter; Y93.89 Activity, other specified; Y92.009 Unspecified place in unspecified non-institutional (private) residence as the place of occurrence of the external cause; Y99.8 Other external cause status

== ENCOUNTER 2016-12-20 12:36 | Emergency (ER) | payer SELFPAY ==
[~2016-12-20] VITALS: Ht 175.3 cm; Wt 137.0 kg
[~2016-12-20 12:36] MED LIST changes: -FLUOXETINE; +NO ROUTINE MEDS; -RISPERIDONE; -TRAZODONE
--- OUTSIDE RECORDS SUMMARY | 2016-12-20 12:40 | XMS REPORT ---
Author Author GENERATED, SYSTEM Organization Unknown Address Unknown Phone Unavailable Care Team Providers Care Filter Tank Tender Helper Name Role Phone MD HANNA, [facility] [phone] Reason For Visit Chief Complaint STAPH INFECTION [...]
--- OUTSIDE RECORDS SUMMARY | 2016-12-20 12:40 | XMS REPORT | Continuity of care Document ---
[...] AMER >=90 ML/MIN GFR EST NON AFR CENTRAL AFRICAN >=90 ML/MIN GLOBULIN 4.0 GM/DL H (2.3-3.5 [...] 4256 - ACUTE ABDOMEN SERIES CPT Code(s): 91842-; ; ; INDICATION / CLINICAL HISTORY: Rectal [...]
--- OUTSIDE RECORDS SUMMARY | 2016-12-20 12:40 | XMS REPORT ---
Author Author GENERATED, SYSTEM Organization Unknown Address Unknown Phone Unavailable Care Team Providers Care Pharmaceutical Development Technician Name Role Phone MD HANNA, [facility] [phone] Reason For Visit Chief Complaint COUGH X [...]
--- OUTSIDE RECORDS SUMMARY | 2016-12-20 12:40 | XMS REPORT ---
Author Author GENERATED, SYSTEM Organization Unknown Address Unknown Phone Unavailable Care Team Providers Care Dump Operator Name Role Phone MD HANNA, [facility] [phone] Reason For Visit Chief Complaint STAPH INFECTION [...]
--- OUTSIDE RECORDS SUMMARY | 2016-12-20 12:41 | XMS REPORT | Continuity of care Document ---
Author Author GENERATED, SYSTEM Organization Unknown Address Unknown Phone Unavailable Purpose Hospital Course Allergies, Adverse Reactions, Alerts * No Latex Allergy. * No IV Contrast Allergy. * No Known Drug Allergies. Problems No relevant problems exist. Procedures No relevant procedures performed. Medication It is the responsibility of the patient or patient loss prevention representative to confirm the list of medications [...] H (2.3-3.5 GM/DL) GFR EST NON AFR ESTONIAN >=90 ML/MIN GFRA EST AFR AMER >=90 [...]
--- OUTSIDE RECORDS SUMMARY | 2016-12-20 12:41 | XMS REPORT ---
Author Author GENERATED, SYSTEM Organization Unknown Address Unknown Phone Unavailable Care Team Providers Care Commercial Trailer Truck Driver Name Role Phone UNASSIGNED DOCTOR , DOCTOR PP [phone] Reason For Visit Reason for Visit from [...] MG/DL (65-99 MG/DL) *GFR EST NON AFR LIBYAN >90 ML/MIN *GFRA EST AFR AMER >90 [...] 02/10/2016 10:59 AM:* #1 Office appointment: : [facility] Intake * #1 Date/Time : 02/10/2016 1:00 PM * Address # 1 : [facility]: [address], [address], [place] - Procedures * Completed Procedure Code: 00.00 [...] the responsibility of the patient or patient scheduling representative to confirm the list of medications [...]
--- OUTSIDE RECORDS SUMMARY | 2016-12-20 12:41 | XMS REPORT ---
Author Author GENERATED, SYSTEM Organization Unknown Address Unknown Phone Unavailable Care Team Providers Care Office Specialist Name Role Phone MD HANNA, [facility] [phone] Reason For Visit Chief Complaint EAR ACHE [...]
--- OUTSIDE RECORDS SUMMARY | 2016-12-20 12:41 | XMS REPORT ---
Author Author GENERATED, SYSTEM Organization Unknown Address Unknown Phone Unavailable Care Team Providers Care Motor And Generator Assembler Name Role Phone MD HANNA, [facility] [phone] Reason For Visit Chief Complaint RETURN FOR [...]
--- OUTSIDE RECORDS SUMMARY | 2016-12-20 12:41 | XMS REPORT | Continuity of Care Document ---
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 Visit Date/Time Discharge Status Pt. Type Provider Facility Loc./Unit Complaint [id number] 08/26/2012 21:52:00 2011 01:55:00 DIS Inpatient Neeraj Diaz MD [facility] on [address]
--- OUTSIDE RECORDS SUMMARY | 2016-12-20 12:41 | XMS REPORT ---
Author Author FriendPeyton [facility] Address [address] [place], [place] [address] Care Team Providers Care Farmworker Diversified Crops Name Role Phone FriendPeyton Unavailable [phone] PROBLEMS Type Condition ICD9-CM Code BUV60-QC Code Onset Dates Condition Status SNOMED Code Assessment Screening, deficiency anemia, iron Z13.0 05 Sep, 2016 Active Assessment Screening for HIV (human immunodeficiency virus) Z11.4 Sep Active 150333668 Assessment Need for hepatitis B screening test Z11.59 Sep, Active 786830992 Assessment Dermatitis L30.9 Sep, Active 260984794 Problem Depression with anxiety F41.8 Active 013429039 Problem Hypoglycemia E16.2 Active 125036489 Problem Anxiety F41.9 Active 38580006 Assessment High blood pressure I10 Sep, Active 29222262 Problem High blood pressure I10 Active 07700111 Problem Depression F32.9 Active 561379157 ALLERGIES Substance Reaction Event Type Date Status N.K.D.A. Unknown Non Drug Allergy Sep, Unknown SOCIAL HISTORY No smoking Hx information available PLAN OF CARE Activity Details Pending Test CBC no Differential Pending Test Comprehensive Metabolic Panel (CMP) Pending Test Hepatitis Panel (use Z11.59 to screen) Pending Test HIV 1&2 (use Z11.4) Pending Test Venipuncture 2 Months,Reason: VITAL SIGNS Height 69 in 2016-09-28 Weight 297.4 lbs 2016-09-28 BMI 43.91 kg/m2 2016-09-28 Temperature 98.2 degrees Fahrenheit 2016-09-28 Heart Rate 66 /min 2016-09-28 Respiratory Rate 22 /min 2016-09-28 Oximetry 98 % 2016-09-28 Blood pressure systolic 128 mm Hg 2016-09-28 Blood pressure diastolic 82 mm Hg 2016-09-28 MEDICATIONS Medication Instructions Dosage Frequency Start Date End Date Duration Status Trazodone HCl 50 MG Orally Once a day qhs prn 1 tablet at bedtime as needed Feb, 30 day(s) Active Fluoxetine 40 mg orally once daily in the morning take 1 capsule (40 mg) by oral route once daily in the morning Dec, 30 days Active Triamcinolone Acetonide 0.1 % Externally Twice a day 1 application to affected area Sep, 30 days Active Lisinopril 20 MG Orally Once a day at bedtime 1 tablet Feb, 30 day(s) Active BusPIRone HCl 10 MG Orally Twice a day 1 tablet Sep, 30 days Active RESULTS Name Result Date Reference Range CBC no Differential 2016-09-28 WBC 7.8 4.8-10.8 RBC 5.23 4.60-6.20 HGB 15.2 14.0-18.0 HCT 45.6 42.0-52.0 MCV 87.2 82.0-99.0 MCH 29.1 27.0-32.0 MCHC 33.3 32.0-36.0 RDW 13.3 11.5-14.5 MPV 10.5 8.8-14.8 Platelet Count 204 150-400 Comprehensive Metabolic Panel (CMP) 2016-09-28 Glucose 85 70-99 BUN 17 9-21 Creatinine 0.66 0.72-1.25 Calcium 9.2 8.9-10.5 Sodium 139 135-144 Potassium 4.1 3.5-5.2 Chloride 109 99-111 CO2 20 23-31 Albumin 4.3 3.5-5.0 Bilirubin Total 0.3 0.2-1.2 Alkaline Phosphatase 149 40-150 Protein 7.4 6.1-7.7 ALT (SGPT) 38 0-55 AST (SGOT) 21 5-34 Anion Gap 10 3-20 Globulin 3.1 1.8-4.0 Hepatitis Panel (use Z11.59 to screen) 2016-09-28 Hepatitis Core Ab IGM Negative Hepatitis B Surface Antigen Negative Hepatitis A Antibody IGM Negative Hepatitis C Total Antibody Negative HIV 1&2 (use Z11.4) 2016-09-28 HIV Antigen/Antibody Combo Negative eGFR 2016-09-28 eGFR >60 >60 Venipuncture 2016-09-28 PROCEDURES Procedure Date Ordered Related Diagnosis Body Site ROUTINE VENIPUNCTURE Sep 28, 2016 Comprehen Metabolic Panel.AMS Sep 28, 2016 Acute Hepatitis Panel - AMS Sep 28, 2016 HIV-1/HIV-2 RESULT ANTBDY.AMS Sep 28, 2016 OFFICE VISIT EST PATIENT LEVEL 4 Sep 28, 2016 COMPLETE CBC, AUTOMATED.AMS Sep 28, 2016 IMMUNIZATIONS No Known Immunizations
--- OUTSIDE RECORDS SUMMARY | 2016-12-20 12:41 | XMS REPORT ---
Author Author GENERATED, SYSTEM Organization Unknown Address Unknown Phone Unavailable Care Team Providers Care Director Workers Compensation Name Role Phone MD HANNA, [facility] [phone] Reason For Visit Chief Complaint CRISIS Social [...] H (65-99 MG/DL) GFR EST NON AFR BANGLADESHI >90 ML/MIN GFRA EST AFR AMER >90 [...]
--- OUTSIDE RECORDS SUMMARY | 2016-12-20 12:41 | XMS REPORT | Continuity of Care Document ---
Author Author [facility] Organization [facility] Address Unknown Phone Unavailable Support Name Relationship Address Phone MAGO INFANTE MD Caregiver [address] [place] [address] Unavailable AMBER CARBAJAL Next Of Kin Unknown [phone] Insurance Providers Guarantor Neeraj Ferguson Address [address] [place] [address] Email DENIED 16 Payer Self Pay Subscriber's Name Neeraj Ferguson Relationship 18 Self Chief Complaint and Reason for Visit Chief Complaint Lower Extremity Pain Reason for Visit Right knee sprain Problems Past Problems Medical Problem Onset Date Right knee sprain Unknown URI (upper respiratory infection) Unknown Medications Current Home Medications Medication Dose Units Route Directions Days Qty Instructions Start Date No Routine Meds 12/16/16 Social History Social History Problem Response Recorded Date/Time Onset Date Status Chewing Tobacco Status No 12/16/2016 4:50am Not Applicable Not Applicable Hx Substance Use No 12/16/2016 4:50am Not Applicable Not Applicable Hx Alcohol Use No 12/16/2016 4:50am Not Applicable Not Applicable Query Response Start Date Stop Date Smoking Status Current every day smoker Hospital Discharge Instructions No hospital discharge instructions. Plan of Care Discharge Date 12/16/16 6:00am Disposition 01 DISCHARGED HOME, SELF-CARE Condition at Discharge Stable Instructions/Education Provided Knee Sprain (ED) Prescriptions See Medication Section Referrals JING GONZALEZ MD Address: [address] [place] [phone] Additional Instructions/Education Please call and make an appointment to see Dr. Gonzalez on Sunday for follow-up on an ER visit. Use crutches for toe-touch, minimal weightbearing on the leg until cleared by orthopedics. Homestead 5 mg, 1 tab every 6 hours as needed for pain. Ice and elevate the knee. Functional Status No functional status results. Allergies, Adverse Reactions, Alerts No known allergies. Immunizations No immunization records. Vital Signs Acute Vital Signs Vital Response Date/Time Temperature (Fahrenheit) 98.4 deg F (96.8 - 99.1) 12/16/2016 6:00am Temperature (Calculated Celsius) 36.68444 degrees C (36.0 - 37.3) 12/16/2016 6:00am Pulse Rate (adult) 97 bpm (60 - 100) 12/16/2016 6:00am Respiratory Rate 18 breaths/min (10 - 20) 12/16/2016 6:00am O2 Sat by Pulse Oximetry 98 % (90 - 100) 12/16/2016 6:00am Blood Pressure 148/92 mm Hg 12/16/2016 6:00am Height (Feet) 5 feet 12/16/2016 4:49am Height (Inches) 9.00 inches 12/16/2016 4:49am Weight (Kilograms) 133.600 kg 12/16/2016 4:49am Body Mass Index (BMI) 43.0 12/16/2016 4:49am Results No known relevant diagnostic tests, laboratory data and/or discharge summary. Procedures No known history of procedures. Encounters Encounter Location Arrival/Admit Date Discharge/Depart Date Attending Provider Departed Emergency Room [facility] 12/16/16 4:35am 12/16/16 6: 00am MAGO INFANTE MD Departed Emergency Room [facility] 11/04/16 3:30am 11/04/16 4: 08am JOJO VIDAL DO Recent Diagnosis
--- OUTSIDE RECORDS SUMMARY | 2016-12-20 12:41 | XMS REPORT ---
Author Author GENERATED, SYSTEM Organization Unknown Address Unknown Phone Unavailable Care Team Providers Care Fiction And Nonfiction Writer Prose Name Role Phone MD HANNA, [facility] [phone] Reason For Visit Chief Complaint RECHECK OF [...]
--- OUTSIDE RECORDS SUMMARY | 2016-12-20 12:41 | XMS REPORT ---
Author Author GENERATED, SYSTEM Organization Unknown Address Unknown Phone Unavailable Care Team Providers Care Regional Director Of Admissions Name Role Phone UNASSIGNED DOCTOR , DOCTOR PP [phone] Reason For Visit Chief Complaint RT EAR [...]
--- OUTSIDE RECORDS SUMMARY | 2016-12-20 12:46 | XMS REPORT ---
Author Author GENERATED, SYSTEM Organization Unknown Address Unknown Phone Unavailable Care Team Providers Care Crtts Name Role Phone MD HANNA, [facility] [phone] Reason For Visit Chief Complaint STAPH INFECTION [...]
--- OUTSIDE RECORDS SUMMARY | 2016-12-20 12:46 | XMS REPORT ---
Author Author GENERATED, SYSTEM Organization Unknown Address Unknown Phone Unavailable Care Team Providers Care Speech Correction Consultant Name Role Phone MD HANNA, [facility] [phone] Reason For Visit Chief Complaint COUGH X [...]
--- OUTSIDE RECORDS SUMMARY | 2016-12-20 12:46 | XMS REPORT | Continuity of Care Document ---
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 Visit Date/Time Discharge Status Pt. Type Provider Facility Loc./Unit Complaint [id number] 08/26/2012 21:52:00 2011 01:55:00 DIS Inpatient Neeraj Diaz MD [facility] on [address]
--- OUTSIDE RECORDS SUMMARY | 2016-12-20 12:46 | XMS REPORT ---
Author Author GENERATED, SYSTEM Organization Unknown Address Unknown Phone Unavailable Care Team Providers Care Business Law Instructor Name Role Phone MD HANNA, [facility] [phone] Reason For Visit Chief Complaint STAPH INFECTION [...]
--- OUTSIDE RECORDS SUMMARY | 2016-12-20 12:46 | XMS REPORT ---
Author Author GENERATED, SYSTEM Organization Unknown Address Unknown Phone Unavailable Care Team Providers Care Arch Pad Cementer Name Role Phone MD HANNA, [facility] [phone] Reason For Visit Chief Complaint RETURN FOR [...]
--- OUTSIDE RECORDS SUMMARY | 2016-12-20 12:46 | XMS REPORT | Continuity of care Document ---
[...] AMER >=90 ML/MIN GFR EST NON AFR BAHRAINI >=90 ML/MIN GLOBULIN 4.0 GM/DL H (2.3-3.5 [...] 4256 - ACUTE ABDOMEN SERIES CPT Code(s): 48006-; ; ; INDICATION / CLINICAL HISTORY: Rectal [...]
--- OUTSIDE RECORDS SUMMARY | 2016-12-20 12:46 | XMS REPORT ---
Author Author GENERATED, SYSTEM Organization Unknown Address Unknown Phone Unavailable Care Team Providers Care Industry Segment Specialist Name Role Phone MD HANNA, [facility] [phone] Reason For Visit Chief Complaint EAR ACHE [...]
[2016-12-20 12:47] VITALS: Ht 175.3 cm; Wt 137.0 kg
--- OUTSIDE RECORDS SUMMARY | 2016-12-20 12:47 | XMS REPORT ---
Author Author GENERATED, SYSTEM Organization Unknown Address Unknown Phone Unavailable Care Team Providers Care Welfare Manager Name Role Phone MD HANNA, [facility] [phone] Reason For Visit Chief Complaint RECHECK OF [...]
--- OUTSIDE RECORDS SUMMARY | 2016-12-20 12:47 | XMS REPORT ---
Author Author GENERATED, SYSTEM Organization Unknown Address Unknown Phone Unavailable Care Team Providers Care Online Health And Fitness Coach Name Role Phone MD HANNA, [facility] [phone] Reason For Visit Chief Complaint CRISIS Social [...] H (65-99 MG/DL) GFR EST NON AFR JORDANIAN >90 ML/MIN GFRA EST AFR AMER >90 [...]
--- OUTSIDE RECORDS SUMMARY | 2016-12-20 12:47 | XMS REPORT ---
Author Author GENERATED, SYSTEM Organization Unknown Address Unknown Phone Unavailable Care Team Providers Care Ultrasound Applications Specialist Name Role Phone UNASSIGNED DOCTOR , DOCTOR PP [phone] Reason For Visit Reason for Visit from [...] MG/DL (65-99 MG/DL) *GFR EST NON AFR GABONESE >90 ML/MIN *GFRA EST AFR AMER >90 [...] 02/10/2016 10:59 AM:* #1 Office appointment: : [facility] Intake * #1 Date/Time : 02/10/2016 1:00 PM * Address # 1 : [facility]: [address], [address], [place] - Procedures * Completed Procedure Code: 00.00 [...] the responsibility of the patient or patient admissions representative to confirm the list of medications [...]
--- OUTSIDE RECORDS SUMMARY | 2016-12-20 12:47 | XMS REPORT | Continuity of care Document ---
Author Author GENERATED, SYSTEM Organization Unknown Address Unknown Phone Unavailable Purpose Hospital Course Allergies, Adverse Reactions, Alerts * No Latex Allergy. * No IV Contrast Allergy. * No Known Drug Allergies. Problems No relevant problems exist. Procedures No relevant procedures performed. Medication It is the responsibility of the patient or patient patient registration representative to confirm the list of medications [...] H (2.3-3.5 GM/DL) GFR EST NON AFR PORTUGUESE >=90 ML/MIN GFRA EST AFR AMER >=90 [...]
--- OUTSIDE RECORDS SUMMARY | 2016-12-20 12:47 | XMS REPORT ---
Author Author GENERATED, SYSTEM Organization Unknown Address Unknown Phone Unavailable Care Team Providers Care Neuropsychology Division Chief Name Role Phone UNASSIGNED DOCTOR , DOCTOR PP [phone] Reason For Visit Chief Complaint RT EAR [...]
--- NOTE | 2016-12-20 12:56 | NUR ---
XRAY PT TO XRAY BY CART AT THIS TIME.
--- NOTE | 2016-12-20 13:03 | NUR ---
RETURN PT RETURNED FROM XRAY AT THIS TIME.
--- NOTE | 2016-12-20 13:04 | NUR ---
SONO AT BEDSIDE.
--- NOTE | 2016-12-20 13:16 | DI ---
Indication: ITS.REASON: pain, injury PROCEDURE: KNEE RIGHT 3 VIEWS: Encounter: Initial Comparison: December 16, 2016 Findings: Displaced avulsion fracture of the medial aspect of the patella is again noted in stable position. The fracture fragment projects over the medial aspect of the joint space and could be intraarticular. This cannot be definitively localized on the lateral view however. Old avulsive trauma to the medial femoral condyle is again noted. Mild medial compartment joint space narrowing. Impression: Stable appearance of the medial patellar avulsion fracture. .
[2016-12-20] MEDS ORDERED: IBUP-1547 PO (13:17)
--- NOTE | 2016-12-20 13:31 | DI ---
Indication: ITS.REASON: pain, swelling PROCEDURE: US VENOUS DUPLEX, LOWER EXT RT: Encounter: Initial Comparison: None Technique: Color Doppler duplex and grayscale sonographic imaging of the right lower extremity was performed. Findings: There is no evidence for acute deep venous thrombosis in the right thigh. Specifically, serial graded compression was performed from the inguinal ligament to the popliteal bifurcation, on the right thigh, demonstrating appropriate compressibility of the deep venous system. In addition, color and pulsed Doppler demonstrate appropriate spontaneous flow, variation with respiration, and augmentation with calf compression. At the ankle, normal flow is identified in the posterior tibial veins; these vessels are also normal in caliber. There is a fluid collection anterior and superior to the knee consistent with a joint effusion measuring 4.7 x 1.4 x 2.6 cm in size. Impression: No evidence of acute DVT in the right lower limb. Knee joint effusion. .
[2016-12-20] MEDS ORDERED: OXYC1TAB8 PO (13:39)
--- NOTE | 2016-12-20 13:39 | ERPDOC ---
Departure Disposition Decision Date: Dec 20, 2016 Disposition Decision Time: 13:37 Disposition: 01 DISCHARGED HOME, SELF-CARE Impression Impression Impression: Primary Impression: Patellar fracture Encounter type: subsequent encounter Fracture type: closed Fracture alignment: nondisplaced Laterality: right Fracture healing: with routine healing Severity: Mild Condition: Improved Seen By: Physician only Referrals: [facility] 2 Days [facility] 2 Days Patient Instructions: Patellar Fracture (ED) Problems/Meds/Labs Reviewed?: Yes Medications reviewed and manag: Yes Follow up care ordered?: Yes Mental Status: Alert, Oriented Scripts Oxycodone HCl/Acetaminophen (Percocet 5-325 mg Tablet) 5-325 Tablet 1 TAB PO Q4HR Y for PAIN for 3 Days, #18 TAB 0 Refills Prov: FELICITY MCKENZIE DO 12/20/16 HPI - Lower Extremity General Chief Complaint: Lower Extremity Injury Stated Complaint: KNEE PAIN Time Seen by Provider: 12:39 Source: patient Exam Limitations: no limitations HPI - Lower Extremity Initial Comments 26-year-old male presents to the emergency department with a chief complaint of right knee pain. Patient has a known patellar fracture. Patient injured his knee originally on 12/15/2016. Patient denies any new injury or complaints. Patient is out of his pain medication. His orthopedic appointment was moved back 1 week. Patient notes a moderate dull aching sensation in the right knee. No radiation. Pain increases with ambulation and improves with rest and positioning. Patient denies any new injury or trauma. He denies any other complaints or associated symptoms. Patient was at home when the symptoms began. Symptoms have persisted in nature since onset. Patient arrives with his own knee immobilizer and crutches. Patient is scheduled to see Dr. Gonzalez for further evaluation and treatment. Occurred At: home Onset/Timing: Gradual, Constant Allergies: Coded Allergies: No Known Allergies (Unverified , 12/20/16) Past History Past Medical History Pt denies signifigant PMH Psychological: depression Surgical History General: tonsils Family History Family History: Negative Social History Smoking Status: Never smoker Substance Use Type: does not use Alcohol Intake: none Review of Systems Constitutional Constitutional: DENIES: chills, fever Eyes General: DENIES: erythema, exudate Lids/Accessories: DENIES: erythema, swelling Vision: DENIES: acuity, blurring ENMT Ears: DENIES: drainage, erythema Hearing: DENIES: hearing loss Balance: DENIES: ataxia, falling to one side Sinuses: DENIES: congestion, pain Nose: DENIES: nosebleeds, pain Mouth/Throat: DENIES: painful swallowing, sore throat Teeth: DENIES: pain Jaw: DENIES: pain Cardiovascular Cardiac: DENIES: chest pain, dyspnea on exertion Rhythm/Rate: DENIES: irregular beat, palpitations Vascular: DENIES: pedal edema, unilateral swelling Pulmonary Respiratory: DENIES: cough, dyspnea, pleuritic chest pain, sputum GI Upper Abdomen: DENIES: nausea, pain, vomiting Lower Abdomen: DENIES: diarrhea, pain General: DENIES: dysuria, pain Musculoskeletal General: joint pain, tenderness Integumentary Skin: DENIES: itching, rash Neurological General: DENIES: headache, numbness, weakness Psychiatric Psychiatric: DENIES: emotional instability, suicidal ideation/attempt Hematologic/Lymphatic Hematologic/Lymphatic: DENIES: frequent nosebleeds, lymphadenopathy Allergic/Immunological Allergic/Immunoligical: DENIES: allergic reactions, hives Physical Exam General General Nourishment: well nourished, well developed, appears stated age, no acute distress, adult General Body Habitus: well groomed Vitals and Pain First Documented Vital Signs Date Time Temp Pulse Resp B/P Pulse Ox O2 Delivery O2 Flow Rate FiO2 12/20/16 12:47 97.9 92 20 145/85 98 Room Air Weight: Kilograms: 137.000 Height (feet): 5 Height (inches): 9.00 Triage Pain Scale: RN VS reviewed by Provider: Yes Normal Exams: Head: Normocephalic w/o trauma Eyes: Pupils are PERRLA w/ EOMI, No scleral icterus, irritation, or foreign bodies noted ENMT: No facial trauma, nasal exudates, pharyngeal erythema, or exudates are noted Dental: No fractured, loose, or missing teeth noted Neck: Full range of motion, without adenopathy, JVD, bruits or thyromegaly Chest/Resp: Clear all guzmán, with good airflow, and symmetry bilaterally CV: Regular rate and rhythm, without murmur or gallop, Pulses 2+ all extremities, capillary refill, <2 seconds all ext., no pedal edema noted Abdomen: Bowel sounds positive, soft, non-tender, non-distended, no hepatosplenomegaly, masses or bruits noted Lymphatic: No lymphadenopathy, or lymphedema noted Musculoskeletal: No tenderness, or deformity noted, good range of motion, all extremities Integumentary: No rashes, hives, or bruising noted, hair and nails, without abnormality Neurologic: Patient is alert, and oriented, cranial nerves, motor/sensory/ cerebellar, exams w/o gross deficits, to observation Psychiatric: Patient exhibits, appropriate attention, emotion and affect Musculoskeletal (brief) Comments R KNEE - full range of motion. No erythema. No edema. Skin is intact. Pulses intact. sensation intact. Capillary refill less than 2. No focal bony tenderness. Diffusely tender to palpation. No other tenderness in the right lower extremity. Unremarkable ligamentous examination. All other extremities are unremarkable. Differential Diagnoses Considering: Fracture, Ligament Tear ACL, Ligament Tear PCL, Meniscal Injury, Knee, Sprain, Strain Progress Results/Orders Orders Procedure Category Date Status Time Knee Right 3 Views RAD 12/20/16 Resulted 12:48 Us Venous Duplex, US 12/20/16 Resulted Lower Ext Rt 12:48 Oxycodone/Apap 5/325 PHA 12/20/16 Complete (Percocet 5/325) 13:45 Medications Current ED Medications Oxycodone/ Acetaminophen (Percocet 5/325) 1 tab O ONCE PO Last administered on 12/20/16t 13:45; Start 12/20/16 at 13:45; Stop 12/20/16 at 13:46; Status DC Progress Progress Imaging is discussed in detail with the patient and questions are answered. Patient is given analgesic pain medication with improvement of symptoms. Patient was placed in his knee immobilizer with good alignment by the RN. Patient is distal neurovascular intact post-application of immobilizer. Patient is discharged home in improved condition. Patient to follow up as instructed. Patient is to return to the emergency department if his condition worsens or changes in any manner. Patient is educated in the use of his crutches. Patient is provided with a prescription for analgesic pain medication. [facility] for re- evaluation and potential refill of pain medication as indicated. Patient is in agreement with the current plan of management. Patient is discharged home in improved condition. He is to keep his previously scheduled orthopedic appointment. Xray Xray : Xray: Knee R Interpretation: Abnormal (nondisplaced patellar fracture.), Reviewed Written Report Ultrasound US : Ultrasound: Venous Doppler Interpretation: Normal, Reviewed Written Report FELICITY MCKENZIE DO Dec 20, 2016 13:39
[2016-12-20] MEDS ORDERED: OXYCODONE/APAP 5mg/325mg TABLET PO ONE (13:45)
[2016-12-20 13:50] VITALS: BP 136/77; PULSE 79; RESP 18; O2SAT 97
--- NOTE | 2016-12-20 13:50 | NUR ---
DISCHARGE WRITTEN INSTRUCTIONS WITH PERCOCET RX REVIEWED AND SENT WITH PT. PT VERBALIZES UNDERSTANDING OF DI AND MEDICATION, DENIES QUESTIONS. PT AMBULATES OUT OF ER WITH STEADY GAIT ACCOMP BY SPOUSE AT THIS TIME.
== END 2016-12-20 13:50 | disposition home or self-care (01) ==
LOC: ED 12:36
DX: S82.001D Unspecified fracture of right patella, subsequent encounter for closed fracture with routine healing (principal); X58.XXXD Exposure to other specified factors, subsequent encounter

== ENCOUNTER 2017-01-30 22:54 | Emergency (ER) | payer SELFPAY ==
[~2017-01-30] VITALS: Ht 175.3 cm; Wt 139.2 kg
[~2017-01-30 22:54] MED LIST changes: +IBUP-1547 PO; +OXYC1TAB8 PO
--- OUTSIDE RECORDS SUMMARY | 2017-01-30 22:58 | XMS REPORT ---
Author Author GENERATED, SYSTEM Organization Unknown Address Unknown Phone Unavailable Care Team Providers Care Lumber Piler Name Role Phone MD HANNA, [facility] [phone] Reason For Visit Chief Complaint STAPH INFECTION [...]
--- OUTSIDE RECORDS SUMMARY | 2017-01-30 22:58 | XMS REPORT | Continuity of care Document ---
[...] AMER >=90 ML/MIN GFR EST NON AFR SLOVENIAN >=90 ML/MIN GLOBULIN 4.0 GM/DL H (2.3-3.5 [...] 4256 - ACUTE ABDOMEN SERIES CPT Code(s): 69220-; ; ; INDICATION / CLINICAL HISTORY: Rectal [...]
--- OUTSIDE RECORDS SUMMARY | 2017-01-30 22:58 | XMS REPORT ---
Author Author GENERATED, SYSTEM Organization Unknown Address Unknown Phone Unavailable Care Team Providers Care Theater Projectionist Name Role Phone MD HANNA, [facility] [phone] Reason For Visit Chief Complaint EAR ACHE [...]
--- OUTSIDE RECORDS SUMMARY | 2017-01-30 22:58 | XMS REPORT ---
Author Author GENERATED, SYSTEM Organization Unknown Address Unknown Phone Unavailable Care Team Providers Care Tangled Yarn Worker Name Role Phone MD HANNA, [facility] [phone] Reason For Visit Chief Complaint STAPH INFECTION [...]
--- OUTSIDE RECORDS SUMMARY | 2017-01-30 22:58 | XMS REPORT ---
Author Author GENERATED, SYSTEM Organization Unknown Address Unknown Phone Unavailable Care Team Providers Care Public Service Administrator Name Role Phone MD HANNA, [facility] [phone] Reason For Visit Chief Complaint COUGH X [...]
--- OUTSIDE RECORDS SUMMARY | 2017-01-30 22:59 | XMS REPORT ---
Author Author GENERATED, SYSTEM Organization Unknown Address Unknown Phone Unavailable Care Team Providers Care Hot Mill Supervisor Name Role Phone UNASSIGNED DOCTOR , DOCTOR PP [phone] Reason For Visit Chief Complaint RT EAR [...]
--- OUTSIDE RECORDS SUMMARY | 2017-01-30 22:59 | XMS REPORT ---
Author Author GENERATED, SYSTEM Organization Unknown Address Unknown Phone Unavailable Care Team Providers Care Childcare Director Name Role Phone MD HANNA, [facility] [phone] Reason For Visit Chief Complaint RETURN FOR [...]
--- OUTSIDE RECORDS SUMMARY | 2017-01-30 22:59 | XMS REPORT ---
Author Author GENERATED, SYSTEM Organization Unknown Address Unknown Phone Unavailable Care Team Providers Care Shuttler Car Name Role Phone MD HANNA, [facility] [phone] Reason For Visit Chief Complaint RECHECK OF [...]
--- OUTSIDE RECORDS SUMMARY | 2017-01-30 22:59 | XMS REPORT | Continuity of Care Document ---
Author Author [facility] Organization [facility] Address Unknown Phone Unavailable Support Name Relationship Address Phone FELICITY MCKENZIE DO Caregiver [address] [place] [address] Unavailable AMBER CARBAJAL Next Of Kin Unknown [phone] Insurance Providers Guarantor Neeraj Ferguson Address [address] [place] [address] Email DENIED 16 Payer Self Pay Subscriber's Name Neeraj Ferguson Relationship 18 Self Advance Directives Directive Response Recorded Date/Time Advanced Directives Type None 12/20/16 12:41pm Chief Complaint and Reason for Visit Chief Complaint Lower Extremity Injury Reason for Visit [id number] Problems Past Problems Medical Problem Onset Date Patellar fracture Unknown Right knee sprain Unknown URI (upper respiratory infection) Unknown Medications Current Home Medications Medication Dose Units Route Directions Days Qty Instructions Start Date Ibuprofen 800 Mg Tablet 800 Mg Oral Every 6 Hours as needed for Pain 12/20/16 No Routine Meds 12/16/16 Oxycodone Hcl/Acetaminophen (Percocet 5-325 Mg Tablet) 5-325 Tablet 1 Tab Oral Every 4 Hours as needed for Pain 3 Days 18 Tablet 12/20/16 Social History Social History Problem Response Recorded Date/Time Onset Date Status Hx Substance Use No 12/20/2016 12:55pm Not Applicable Not Applicable Hx Alcohol Use No 12/20/2016 12:55pm Not Applicable Not Applicable Query Response Start Date Stop Date Smoking Status Current every day smoker Hospital Discharge Instructions No hospital discharge instructions. Plan of Care Discharge Date 12/20/16 1:50pm Disposition 01 DISCHARGED HOME, SELF-CARE Condition at Discharge Improved Instructions/Education Provided Patellar Fracture (ED) Prescriptions See Medication Section Referrals [facility] Order Date: 2 Days [facility] Order Date: 2 Days Care Plan and Goals Physician Care Plan Problem: Patellar Fracture. Goal: Follow up with primary care provider Instructions: Take medications and follow care plan as discussed/written Functional Status No functional status results. Allergies, Adverse Reactions, Alerts No known allergies. Immunizations Query Response on File Recorded Date/Time Tdap Vaccine Hx SKIN INTACT 12/20/16 12:55pm Vital Signs Acute Vital Signs Vital Response Date/Time Temperature (Fahrenheit) 97.9 deg F (96.8 - 99.1) 12/20/2016 12:47pm Temperature (Calculated Celsius) 36.58883 degrees C (36.0 - 37.3) 12/20/2016 12:47pm Pulse Rate (adult) 79 bpm (60 - 100) 12/20/2016 1:50pm Respiratory Rate 18 breaths/min (10 - 20) 12/20/2016 1:50pm O2 Sat by Pulse Oximetry 97 % (90 - 100) 12/20/2016 1:50pm Blood Pressure 136/77 mm Hg 12/20/2016 1:50pm Height (Feet) 5 feet 12/20/2016 12:47pm Height (Inches) 9.00 inches 12/20/2016 12:47pm Weight (Kilograms) 137.000 kg 12/20/2016 12:47pm Body Mass Index (BMI) 44.0 12/20/2016 12:47pm Results Name: NEERAJ FERGUSON Unit #: [id number] : 1990 Sex: M Admit Date: Loc / Svc: ED Discharge Date: DIAGNOSTIC IMAGING REPORT Report #: [id number] [facility] PAMELA Wilkinson Indication: ITS.REASON: pain, swelling PROCEDURE: US VENOUS DUPLEX, LOWER EXT RT: Encounter: Initial Comparison: None Technique: Color Doppler duplex and grayscale sonographic imaging of the right lower extremity was performed. Findings: There is no evidence for acute deep venous thrombosis in the right thigh. Specifically, serial graded compression was performed from the inguinal ligament to the popliteal bifurcation, on the right thigh, demonstrating appropriate compressibility of the deep venous system. In addition, color and pulsed Doppler demonstrate appropriate spontaneous flow, variation with respiration, and augmentation with calf compression. At the ankle, normal flow is identified in the posterior tibial veins; these vessels are also normal in caliber. There is a fluid collection anterior and superior to the knee consistent with a joint effusion measuring 4.7 x 1.4 x 2.6 cm in size. Impression: No evidence of acute DVT in the right lower limb. Knee joint effusion. . Procedures No known history of procedures. Encounters Encounter Location Arrival/Admit Date Discharge/Depart Date Attending Provider Departed Emergency Room [facility] 12/20/16 12:36pm 12/20/16 1: 50pm FELICITY MCKENZIE DO Departed Emergency Room [facility] 12/16/16 4:35am 12/16/16 6: 00am MAGO INFANTE MD Departed Emergency Room [facility] 11/04/16 3:30am 11/04/16 4: 08am JOJO VIDAL DO Recent Diagnosis
--- OUTSIDE RECORDS SUMMARY | 2017-01-30 22:59 | XMS REPORT ---
Author Author GENERATED, SYSTEM Organization Unknown Address Unknown Phone Unavailable Care Team Providers Care Parts Lister Name Role Phone MD HANNA, [facility] [phone] Reason For Visit Chief Complaint CRISIS Social [...] H (65-99 MG/DL) GFR EST NON AFR LIBERIAN >90 ML/MIN GFRA EST AFR AMER >90 [...]
--- OUTSIDE RECORDS SUMMARY | 2017-01-30 22:59 | XMS REPORT | Continuity of Care Document ---
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 Visit Date/Time Discharge Status Pt. Type Provider Facility Loc./Unit Complaint [id number] 08/26/2012 21:52:00 2011 01:55:00 DIS Inpatient Neeraj Diaz MD [facility] on [address]
--- OUTSIDE RECORDS SUMMARY | 2017-01-30 22:59 | XMS REPORT ---
Author Author GENERATED, SYSTEM Organization Unknown Address Unknown Phone Unavailable Care Team Providers Care Special Forces Specialist Name Role Phone UNASSIGNED DOCTOR , DOCTOR PP [phone] Reason For Visit Reason for Visit from [...] MG/DL (65-99 MG/DL) *GFR EST NON AFR BRUNEIAN >90 ML/MIN *GFRA EST AFR AMER >90 [...] 02/10/2016 10:59 AM:* #1 Office appointment: : [facility] Intake * #1 Date/Time : 02/10/2016 1:00 PM * Address # 1 : [facility]: [address], [address], [place] - Procedures * Completed Procedure Code: 00.00 [...] the responsibility of the patient or patient insurance representative to confirm the list of medications [...]
--- OUTSIDE RECORDS SUMMARY | 2017-01-30 22:59 | XMS REPORT | Continuity of care Document ---
Author Author GENERATED, SYSTEM Organization Unknown Address Unknown Phone Unavailable Purpose Hospital Course Allergies, Adverse Reactions, Alerts * No Latex Allergy. * No IV Contrast Allergy. * No Known Drug Allergies. Problems No relevant problems exist. Procedures No relevant procedures performed. Medication It is the responsibility of the patient or patient medical center representative to confirm the list of medications [...] H (2.3-3.5 GM/DL) GFR EST NON AFR MONTENEGRIN >=90 ML/MIN GFRA EST AFR AMER >=90 [...]
--- NOTE | 2017-01-30 23:12 | NUR ---
CONSTANTINE BOLIVAR IS SEATED AT REGISTRATION DESK WITH [employer] OFFICER AT THIS TIME, NOTIFIED OF DELAY. WILL AWAIT ROOM PLACEMENT.
[2017-01-30 23:20] VITALS: Ht 175.3 cm; Wt 139.2 kg
--- NOTE | 2017-01-30 23:32 | ERPDOC ---
Departure Disposition Decision Date: January 31, 2017 Disposition Decision Time: 06:00 (MAGO INFANTE MD) [facility] Impression Impression (JUAN F MORALES APRN) Impression: Primary Impression: Suicidal behavior Additional Impression: Suicidal ideation Severity: Severe (MAGO INFANTE MD) Condition: Stable Seen By: Physician only (MAGO INFANTE MD) Problems/Meds/Labs Reviewed?: Yes Medications reviewed and manag: Yes (MAGO INFANTE MD) Follow up care ordered?: Yes Mental Status: Alert (MAGO INFANTE MD) HPI - Psychosocial General Stated Complaint: SUICIDAL IDEATION Time Seen by MD: 23:23 Source: patient Exam Limitations: no limitations (JUAN F MORALES APRN) Time Seen by MD: 23:23 (MAGO INFANTE MD) HPI - Psychosocial Initial Comments He was at home tonight and got into an argument with his . She left and he told her he was going to kill himself so she called 911. He was pulled over by PD in his car and brought to ER. He does state that he wants to kill himself tonight but does not have a plan. He has had suicide attempt in the past when he cut his throat. Denies any ETOH or drug ingestion tonight. Did take some Ibuprofen earlier this evening. Occurred At: home Onset: Gradual Duration: 1 hr Severity: moderate Associated Symptoms: anxiety, suicidal ideation, DENIES: impaired concentration , ingestion, injury, insomnia Hx of Similar Symptoms: Yes (JUAN F MORALES APRN) Allergies: Coded Allergies: No Known Allergies (Unverified , 12/20/16) Past History Past Medical History Psychological: depression (JUAN F MORALES APRN) Surgical History General: tonsils (JUAN F MORALES APRN) Family History Family History: Negative (JUAN F MORALES APRN) Social History Smoking Status: Never smoker Substance Use Type: does not use Alcohol Intake: none (JUAN F MORALES APRN) Review of Systems Constitutional Constitutional: DENIES: chills, dizziness, fatigue, fever, weakness (JUAN F MORALES APRN) ENMT Ears: DENIES: drainage, pain Sinuses: DENIES: congestion, rhinorrhea Mouth/Throat: DENIES: painful swallowing, scratchy throat, sore throat (NOLD, JUAN F N CABIN SERVICE AGENT) Cardiovascular Cardiac: DENIES: chest pain, orthopnea Rhythm/Rate: DENIES: irregular beat, palpitations (NOLD,JUAN F N CABIN SERVICE AGENT) Pulmonary Respiratory: DENIES: cough, dyspnea, sputum (NOLD,JUAN F N CABIN SERVICE AGENT) GI Upper Abdomen: DENIES: nausea, pain, vomiting Lower Abdomen: DENIES: constipation, diarrhea, pain (NOLD,JUAN F N CABIN SERVICE AGENT) Integumentary Skin: DENIES: rash (NOLD,JUAN F N CABIN SERVICE AGENT) Neurological General: DENIES: headache, numbness, tingling, weakness (NOLD,JUAN F N CABIN SERVICE AGENT) Physical Exam General General Nourishment: well nourished, well developed, appears stated age, no acute distress, adult General Body Habitus: well groomed (NOLD,JUAN F N CABIN SERVICE AGENT) Vitals and Pain First Documented Vital Signs Date Time Temp Pulse Resp B/P Pulse Ox O2 Delivery O2 Flow Rate FiO2 01/30/17 23:20 98.9 91 16 147/89 96 Room Air (MAGO INFANTE MD) Vitals and Pain Weight: Kilograms: Height (feet): 5 Height (inches): 9.00 Triage Pain Scale: (ANDREW,JUAN F N CABIN SERVICE AGENT) RN VS reviewed by Provider: Yes (KIRA MORALESA N CABIN SERVICE AGENT) Normal Exams: ENMT: No facial trauma, nasal exudates, pharyngeal erythema, or exudates are noted Neck: Full range of motion, without adenopathy, JVD, bruits or thyromegaly Chest/Resp: Clear all guzmán, with good airflow, and symmetry bilaterally CV: Regular rate and rhythm, without murmur or gallop, Pulses 2+ all extremities, capillary refill, <2 seconds all ext., no pedal edema noted Abdomen: Bowel sounds positive, soft, non-tender, non-distended, no hepatosplenomegaly, masses or bruits noted Lymphatic: No lymphadenopathy, or lymphedema noted Integumentary: No rashes, hives, or bruising noted Neurologic: Patient is alert, and oriented Psychiatric: Patient exhibits, appropriate attention, emotion and affect (NOLD,JUAN F N CABIN SERVICE AGENT) Differential Diagnoses Considering: Anxiety, Depression, Homicidal Ideation, Birdie, Suicidal Ideation (NOLD,JUAN F N CABIN SERVICE AGENT) Progress Results/Orders Orders Procedure Category Date Status Time Drug Screen LAB 01/30/17 Complete Urine-Test At [facility] 23:25 Salicylate LAB 01/30/17 Complete Acetaminophen LAB 01/30/17 Complete Ethanol LAB 01/30/17 Complete Cbc W/Auto LAB 01/30/17 Complete Diff-Reflex Manual Bmp - Basic Metabolic LAB 01/30/17 Complete Panel Ua, Dip Wreflex LAB 01/30/17 Complete Microsc & Rib Cloth Knitter 23:25 Calcium Carbonate PHA 01/31/17 Complete Chewable (Tums Extra S 01:00 Ibuprofen (Motrin) PHA 01/31/17 Complete 05:15 (MAGO INFANTE MD) Lab Results Laboratory Tests Test 01/30/17 23:56 01/31/17 02:25 White Blood Count 8.5T/MM3 Red Blood Count 4.70M/MM3 Hemoglobin 14.3GM/DL Hematocrit 42.7% Mean Corpuscular Volume 90.9UM3 Mean Corpuscular Hemoglobin 30.4UUG Mean Corpuscular Hemoglobin Concent 33.5GM/DL RDW Standard Deviation 41.6FL Platelet Count 220T/MM3 Mean Platelet Volume 9.9UM3 Immature Granulocyte % (Auto) 0.1% Neutrophils (%) (Auto) 49.2% Lymphocytes (%) (Auto) 39.2% Monocytes (%) (Auto) 7.5% Eosinophils (%) (Auto) 3.6% Basophils (%) (Auto) 0.4% Absolute Immature Granulocyte (auto 0.01T/MM3 Absolute Neutrophils (auto) 4.2T/MM3 Absolute Lymphocytes (auto) 3.3T/MM3 Absolute Monocytes (auto) 0.6T/MM3 Absolute Eosinophils (auto) 0.3T/MM3 Absolute Basophils (auto) 0.0T/MM3 Turbidity < 20 Sodium Level 145MEQ/L Potassium Level 3.8MEQ/L Chloride Level 109MEQ/L Carbon Dioxide Level 24MEQ/L Anion Gap 12MEQ/L Blood Urea Nitrogen 12.0MG/DL Creatinine 0.6MG/DL Glomerular Filtration Rate Calc 164 BUN/Creatinine Ratio 20RATIO Glucose Level 109MG/DL Calculated Osmolality 280MOSM/KG Calcium Level 8.9MG/DL Icterus Index < 2 Chemistry Specimen Hemolysis < 15 Salicylates Level < 1.0MG/DL Acetaminophen Level < 10UG/ML Alcohol, Quantitative <10MG/DL Urine Collection Type Cleancatch-midstream Urine Color Yellow Urine Turbidity Clear Urine pH 5.5 Urine Specific Laura 1.010 Urine Protein Negative Urine Glucose (UA) Negative Urine Ketones Negative Urine Blood Negative Urine Nitrite Negative Urine Bilirubin Negative Urine Urobilinogen 0.2EU/DL Urine Leukocyte Esterase Negative Urinalysis Comment Microscopic not ind. Urine Opiates Screen NegativeNG/ML Urine Oxycodone Screen NegativeNG/ML Urine Methadone Screen NegativeNG/ML Urine Propoxyphene Screen NegativeNG/ML Urine Barbiturates Screen NegativeNG/ML Urine Tricyclic Antidepressants NegativeNG/ML Urine Phencyclidine Screen NegativeNG/ML Urine Amphetamines Screen NegativeNG/ML Urine Methamphetamines Screen PositiveNG/ML Urine Benzodiazepines Screen NegativeNG/ML Urine Cocaine Screen NegativeNG/ML Urine Cannabinoids Screen NegativeNG/ML Urine Drug Screen Confirmation Sent out Urine Drug Screen Information Pending (MAGO INFANTE MD) Lab Results Laboratory Tests Test 01/30/17 23:56 01/31/17 02:25 White Blood Count 8.5T/MM3 Red Blood Count 4.70M/MM3 Hemoglobin 14.3GM/DL Hematocrit 42.7% Mean Corpuscular Volume 90.9UM3 Mean Corpuscular Hemoglobin 30.4UUG Mean Corpuscular Hemoglobin Concent 33.5GM/DL RDW Standard Deviation 41.6FL Platelet Count 220T/MM3 Mean Platelet Volume 9.9UM3 Immature Granulocyte % (Auto) 0.1% Neutrophils (%) (Auto) 49.2% Lymphocytes (%) (Auto) 39.2% Monocytes (%) (Auto) 7.5% Eosinophils (%) (Auto) 3.6% Basophils (%) (Auto) 0.4% Absolute Immature Granulocyte (auto 0.01T/MM3 Absolute Neutrophils (auto) 4.2T/MM3 Absolute Lymphocytes (auto) 3.3T/MM3 Absolute Monocytes (auto) 0.6T/MM3 Absolute Eosinophils (auto) 0.3T/MM3 Absolute Basophils (auto) 0.0T/MM3 Turbidity < 20 Sodium Level 145MEQ/L Potassium Level 3.8MEQ/L Chloride Level 109MEQ/L Carbon Dioxide Level 24MEQ/L Anion Gap 12MEQ/L Blood Urea Nitrogen 12.0MG/DL Creatinine 0.6MG/DL Glomerular Filtration Rate Calc 164 BUN/Creatinine Ratio 20RATIO Glucose Level 109MG/DL Calculated Osmolality 280MOSM/KG Calcium Level 8.9MG/DL Icterus Index < 2 Chemistry Specimen Hemolysis < 15 Salicylates Level < 1.0MG/DL Acetaminophen Level < 10UG/ML Alcohol, Quantitative <10MG/DL Urine Collection Type Cleancatch-midstream Urine Color Yellow Urine Turbidity Clear Urine pH 5.5 Urine Specific Laura 1.010 Urine Protein Negative Urine Glucose (UA) Negative Urine Ketones Negative Urine Blood Negative Urine Nitrite Negative Urine Bilirubin Negative Urine Urobilinogen 0.2EU/DL Urine Leukocyte Esterase Negative Urinalysis Comment Microscopic not ind. Urine Opiates Screen NegativeNG/ML Urine Oxycodone Screen NegativeNG/ML Urine Methadone Screen NegativeNG/ML Urine Propoxyphene Screen NegativeNG/ML Urine Barbiturates Screen NegativeNG/ML Urine Tricyclic Antidepressants NegativeNG/ML Urine Phencyclidine Screen NegativeNG/ML Urine Amphetamines Screen NegativeNG/ML Urine Methamphetamines Screen PositiveNG/ML Urine Benzodiazepines Screen NegativeNG/ML Urine Cocaine Screen NegativeNG/ML Urine Cannabinoids Screen NegativeNG/ML Urine Drug Screen Confirmation Sent out Urine Drug Screen Information Pending (JUAN F MORALES APRN) Medications Current ED Medications Calcium Carbonate (TUMS Extra Strength) 1,500 mg O ONCE PO Last administered on 01/31/17 01:10; Start 01/31/17 at 01:00; Stop 01/31/17 at 01:01; Status DC Ibuprofen (Motrin) 800 mg O ONCE PO Last administered on 01/31/17 04:12; Start 01/31/17 at 05:15; Stop 01/31/17 at 05:16; Status DC (MAGO INFANTE MD) Medications Current ED Medications Calcium Carbonate (TUMS Extra Strength) 1,500 mg O ONCE PO Last administered on 01/31/17 01:10; Start 01/31/17 at 01:00; Stop 01/31/17 at 01:01; Status DC Ibuprofen (Motrin) 800 mg O ONCE PO Last administered on 01/31/17 04:12; Start 01/31/17 at 05:15; Stop 01/31/17 at 05:16; Status DC (JUAN F MORALES APRN) Progress Progress Patient was accepted to [facility]. 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 He does not act as if he is under the influence at this time. He is going voluntarily for suicidal thoughts. He would like to get help. We will await transport. (MAGO INFANTE MD) ANDREWJUAN FOlamide Vasques APRN January 30, 2017 23:32 MAGO INFANTE MD January 31, 2017 06:01
--- NOTE | 2017-01-30 23:45 | NUR ---
BR PT AMBULATES TO BR AT THIS TIME TO HAVE A BM, PT STATES HE DOES NOT HAVE TO URINATE BUT IS GIVEN A URINAL IN CASE TO COLLECT URINE SAMPLE.
--- NOTE | 2017-01-30 23:50 | NUR ---
UPDATE PT WAS UNABLE TO PROVIDE URINE SAMPLE.
--- NOTE | 2017-01-30 23:55 | NUR ---
LAB LAB IN ROOM TO COLLECT BLOOD SAMPLE, PT REFUSES, PROVIDER IS IN TO SPEAK TO PT AND PT AGREES TO LET LAB DRAW.
[2017-01-31 00:03] LABS: BASOPHILS % (AUTO) 0.4 % (0-2); EOSINOPHILS # (AUTO) 0.3 T/MM3 (0-0.5); EOSINOPHILS % (AUTO) 3.6 % (0-4); HCT - HEMATOCRIT 42.7 % (41-53); HGB - HEMOGLOBIN 14.3 GM/DL (13.5-17.5); IMMATURE GRANULOCYTE # (AUTO) 0.01 T/MM3 (0.00-0.03); IMMATURE GRANULOCYTE % (AUTO) 0.1 % (0.0-0.5); LYMPHOCYTES # (AUTO) 3.3 T/MM3 (1-4.8); LYMPHOCYTES % (AUTO) 39.2 % (23-45); MEAN CORPUSCULAR HGB 30.4 UUG (26-34); MEAN CORPUSCULAR HGB CONC(MCHC 33.5 GM/DL (31-37); MEAN CORPUSCULAR VOLUME 90.9 UM3 (80-100); MEAN PLATELET VOLUME 9.9 UM3 (9.4-12.4); MONOCYTES # (AUTO) 0.6 T/MM3 (0-0.8); MONOCYTES % (AUTO) 7.5 % (0-9.0); NEUTROPHILS #(AUTO)-ABSOLUTE 4.2 T/MM3 (1.8-7.7); NEUTROPHILS % (AUTO) 49.2 % (33-66); WBC - WHITE BLOOD COUNT 8.5 T/MM3 (4.5-11.0)
[2017-01-31 00:14] LABS: ACETAMINOPHEN < 10 UG/ML (10-30); ANION GAP 12 MEQ/L (5-15); BUN/CREATININE RATIO 20 RATIO (6-26); CALCIUM 8.9 MG/DL (8.4-10.2); CHLORIDE 109 MEQ/L (98-107); CO2 - CARBON DIOXIDE 24 MEQ/L (22-30); CREATININE 0.6 MG/DL (0.8-1.5); ETHANOL <10 MG/DL (<10); GLOMERULAR FILTRATION RATE 164; GLUCOSE 109 MG/DL (75-110); POTASSIUM 3.8 MEQ/L (3.6-5); SALICYLATE < 1.0 MG/DL (2-20); SODIUM 145 MEQ/L (134-144)
--- OUTSIDE RECORDS SUMMARY | 2017-01-31 00:29 | XMS REPORT | Continuity of Care Document ---
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 Visit Date/Time Discharge Status Pt. Type Provider Facility Loc./Unit Complaint [id number] 08/26/2012 21:52:00 2011 01:55:00 DIS Inpatient Neeraj Diaz MD [facility] on [address]
--- OUTSIDE RECORDS SUMMARY | 2017-01-31 00:29 | XMS REPORT ---
Author Author GENERATED, SYSTEM Organization Unknown Address Unknown Phone Unavailable Care Team Providers Care Bakery Manager Name Role Phone MD HANNA, [facility] [phone] Reason For Visit Chief Complaint RETURN FOR [...]
--- OUTSIDE RECORDS SUMMARY | 2017-01-31 00:29 | XMS REPORT | Continuity of care Document ---
[...] AMER >=90 ML/MIN GFR EST NON AFR FIJIAN >=90 ML/MIN GLOBULIN 4.0 GM/DL H (2.3-3.5 [...] 4256 - ACUTE ABDOMEN SERIES CPT Code(s): 56736-; ; ; INDICATION / CLINICAL HISTORY: Rectal [...]
--- OUTSIDE RECORDS SUMMARY | 2017-01-31 00:29 | XMS REPORT | Continuity of care Document ---
Author Author GENERATED, SYSTEM Organization Unknown Address Unknown Phone Unavailable Purpose Hospital Course Allergies, Adverse Reactions, Alerts * No Latex Allergy. * No IV Contrast Allergy. * No Known Drug Allergies. Problems No relevant problems exist. Procedures No relevant procedures performed. Medication It is the responsibility of the patient or patient sales development representative to confirm the list of medications [...] H (2.3-3.5 GM/DL) GFR EST NON AFR GUINEAN >=90 ML/MIN GFRA EST AFR AMER >=90 [...]
--- OUTSIDE RECORDS SUMMARY | 2017-01-31 00:29 | XMS REPORT ---
Author Author GENERATED, SYSTEM Organization Unknown Address Unknown Phone Unavailable Care Team Providers Care Fermentation Manager Name Role Phone UNASSIGNED DOCTOR , DOCTOR PP [phone] Reason For Visit Chief Complaint RT EAR [...]
--- OUTSIDE RECORDS SUMMARY | 2017-01-31 00:29 | XMS REPORT ---
Author Author GENERATED, SYSTEM Organization Unknown Address Unknown Phone Unavailable Care Team Providers Care Supervisor Printing And Stamping Name Role Phone MD HANNA, [facility] [phone] Reason For Visit Chief Complaint EAR ACHE [...]
--- OUTSIDE RECORDS SUMMARY | 2017-01-31 00:29 | XMS REPORT ---
Author Author GENERATED, SYSTEM Organization Unknown Address Unknown Phone Unavailable Care Team Providers Care Door Hanger Name Role Phone MD HANNA, [facility] [phone] Reason For Visit Chief Complaint STAPH INFECTION [...]
--- OUTSIDE RECORDS SUMMARY | 2017-01-31 00:29 | XMS REPORT ---
Author Author GENERATED, SYSTEM Organization Unknown Address Unknown Phone Unavailable Care Team Providers Care Commuter Pilot Name Role Phone UNASSIGNED DOCTOR , DOCTOR PP [phone] Reason For Visit Reason for Visit from [...] 02/10/2016 10:59 AM:* #1 Office appointment: : [facility] Intake * #1 Date/Time : 02/10/2016 1:00 PM * Address # 1 : [facility]: [address], [address], [place] - Procedures * Completed Procedure Code: 00.00 [...] the responsibility of the patient or patient claim service representative to confirm the list of medications [...]
--- OUTSIDE RECORDS SUMMARY | 2017-01-31 00:29 | XMS REPORT ---
Author Author GENERATED, SYSTEM Organization Unknown Address Unknown Phone Unavailable Care Team Providers Care Travel Journalist Name Role Phone MD HANNA, [facility] [phone] Reason For Visit Chief Complaint COUGH X [...]
--- OUTSIDE RECORDS SUMMARY | 2017-01-31 00:29 | XMS REPORT ---
Author Author GENERATED, SYSTEM Organization Unknown Address Unknown Phone Unavailable Care Team Providers Care Investigation Division Captain Name Role Phone MD HANNA, [facility] [phone] Reason For Visit Chief Complaint CRISIS Social [...] H (65-99 MG/DL) GFR EST NON AFR KAZAKH >90 ML/MIN GFRA EST AFR AMER >90 [...]
--- OUTSIDE RECORDS SUMMARY | 2017-01-31 00:29 | XMS REPORT ---
Author Author GENERATED, SYSTEM Organization Unknown Address Unknown Phone Unavailable Care Team Providers Care Hospital Aides And Assistants Teacher Name Role Phone MD HANNA, [facility] [phone] Reason For Visit Chief Complaint STAPH INFECTION [...]
--- OUTSIDE RECORDS SUMMARY | 2017-01-31 00:29 | XMS REPORT ---
Author Author GENERATED, SYSTEM Organization Unknown Address Unknown Phone Unavailable Care Team Providers Care High Tension Tester Name Role Phone MD HANNA, [facility] [phone] Reason For Visit Chief Complaint RECHECK OF [...]
--- NOTE | 2017-01-31 00:46 | NUR ---
STATUS PT REPORTS HE IS STILL UNABLE TO PROVIDE A URINE SAMPLE AND IS GIVEN WATER TO DRINK AT THIS TIME. PT ASKS FOR TUMS BECAUSE HIS "STOMACH IS KILLING HIM", PROVIDER IS NOTIFIED.
[2017-01-31] MEDS ORDERED: CALCIUM CARBONATE 750mg Chewable TAB PO ONE (01:00)
--- NOTE | 2017-01-31 01:15 | NUR ---
INTAKE PT IS GIVEN 2 ADDITIONAL GLASSES OF ICE WATER AT THIS TIME.
--- NOTE | 2017-01-31 02:15 | NUR ---
STATUS PT IS SLEEPING IN BED, NURSE WAKES PT AND PT STATES HE THINKS HE CAN PROVIDE A URINE SAMPLE AT THIS TIME.
--- NOTE | 2017-01-31 02:25 | NUR ---
BR PT USES URINAL IN ROOM AT THIS TIME, LAB AT BEDSIDE TO COLLECT SAMPLE.
[2017-01-31 02:35] LABS: BLOOD, URINE NEGATIVE (NEGATIVE); COLOR,URINE YELLOW (YELLOW); LEUKOCYTE ESTERASE ,URINE NEGATIVE (NEGATIVE); NITRITE,URINE NEGATIVE (NEGATIVE); UROBILINOGEN,URINE 0.2 EU/DL (NORMAL)
[2017-01-31 02:44] LABS: AMPHETAMINE SCREEN,URINE NEGATIVE; BARBITURATE SCREEN,URINE NEGATIVE; BENZODIAZEPINES SCREEN,URINE NEGATIVE; CANNABINOID SCREEN,URINE NEGATIVE; COCAINE SCREEN,URINE NEGATIVE; METHADONE SCREEN, URINE NEGATIVE; METHAMPHETAMINE SCREEN, URINE POSITIVE; OPIATE SCREEN,URINE NEGATIVE; PHENCYCLIDINE SCREEN,URINE NEGATIVE; TRICYCLIC ANTIDEPRESSANT,URINE NEGATIVE
--- NOTE | 2017-01-31 03:57 | NUR ---
RAFAEL CORREIA IN ROOM TO TALK WITH PT AT THIS TIME.
--- NOTE | 2017-01-31 04:03 | NUR ---
BATHROOM PT AMBULATORY TO BATHROOM TO VOID
--- NOTE | 2017-01-31 04:06 | NUR ---
PAIN PT REPORTS HE HAS A BAD TOOTH THAT MAKES HIS EAR HURT HE HAS BEEN TAKING IBUPROFEN 800MG PO AT HOME FOR THE PAIN LAST DOSE WAS 1999 AND HE WAS WANTING SOME NOW DR INFANTE NOTIFIED
--- NOTE | 2017-01-31 04:12 | NUR ---
IBUPROFEN PT GIVEN IBUPROFEN 800MG PO FOR TOOTH/EAR PAIN
--- NOTE | 2017-01-31 05:00 | NUR ---
BR PT AMBULATES TO BR AT THIS TIME.
[2017-01-31] MEDS ORDERED: IBUPROFEN 800 MG TABLET PO ONE (05:15)
--- NOTE | 2017-01-31 06:02 | NUR ---
REPORT GIVEN TO TIA AT [facility] AT THIS TIME.
--- NOTE | 2017-01-31 06:15 | NUR ---
TRANSPORTATION CONTACTED [facility] AND [facility] TRANSPORT. BOTH DISPATCHERS WILL CONTACT DRIVERS AND NOTIFY WHEN GREW AVAILABLE
--- NOTE | 2017-01-31 07:00 | NUR ---
STATUS PT SLEEPING AT THIS TIME. NO CHANGE IN CONDITION
--- NOTE | 2017-01-31 08:30 | NUR ---
STATUS PT CONTINUES SLEEPING WITHOUT COMPLAINTS. NO FURTHER UPDATE ON TRANSPORTATION ARRIVAL
--- NOTE | 2017-01-31 09:40 | NUR ---
TRANSPORTATION [facility] HERE TO TRANSPORT PT TO [facility] REPORT GIVEN AT THIS TIME
--- NOTE | 2017-01-31 09:48 | NUR ---
[facility]
[2017-01-31 09:49] VITALS: BP 140/82; PULSE 68; RESP 16; TEMP 97.8; O2SAT 97
== END 2017-01-31 09:48 ==
LOC: ED 22:54
DX: R45.851 Suicidal ideations (principal)
CPT/HCPCS: 36415; 80048; 80306; 80307; 81003; 85025